=== PATIENT | female | born 1935 | race Caucasian/White ===

== ENCOUNTER → 2016-12-15 | Outpatient (REF) ==
[~2016-12-15] MED LIST: ALDACTONE 25MG25 M1 PO; ASPIRIN 81M81 MG/TA2 PO; BETAPACE 120MG120 MG PO; BETAPACE160 MG PO; CALCIUM 600 PLU1 TAB PO; CALCIUM CARBON500 M1 PO; CARDIZEM 30MG T30 MG PO; CENTRUM SILVER1 TA1 PO; D3-5050000 IU PO; DEEP SEA 45 ML45 ML NS; DIGOXIN0.125 MG PO; DILTIAZEM CD240 MG PO; FERROUS SULFATE65 MG PO; FIBERCON PO; IRON; LEVOTHYROXINE0.05 M1 PO; LISINOPRIL20 MG PO; LOPRESSOR100 MG PO; MULTI-VITAMIN W1 TA1 PO; MVI PO; PERCOCET 325 MG1 TA2 PO; SYNTHROID0.1 MG/TAB PO; TIMOLOL MALEATE5 M1 OP; TOPROL XL100 MG PO; TOPROL XL25 MG PO; TYLENOL 500MG500 MG PO; ULTRAM 50MG TAB50 MG PO; VITAMIN B12 PO; VITAMIN D PO; XALATAN EYE DROPS OD; ZOLOFT 50MG50 MG PO; ZOLOFT50 MG PO
[2016-12-15 12:26] LABS: THYROID STIMULATING HORMONE 3.93 uIU/mL (0.465-4.680)
== END ==
LOC: ZLAB.WCH 11:28
PROVIDERS: Internal Medicine
DX: Z01.89 Encounter for other specified special examinations (principal)

== ENCOUNTER 2017-05-03 11:40 | Emergency (ER) | payer MEDICARE, OTHER ==
[~2017-05-03] VITALS: Ht 167.6 cm; Wt 72.7 kg
[~2017-05-03 11:40] MED LIST changes: -ASPIRIN 81M81 MG/TA2 PO; -CALCIUM 600 PLU1 TAB PO; -DEEP SEA 45 ML45 ML NS; -MULTI-VITAMIN W1 TA1 PO; -PERCOCET 325 MG1 TA2 PO; -ULTRAM 50MG TAB50 MG PO
[2017-05-03 11:41] VITALS: TEMP 97.9
[2017-05-03 12:42] VITALS: BP 118/75
[2017-05-03] MEDS ORDERED: ULTRAM 50MG TAB50 MG PO (13:26)
[2017-05-03] MEDS ORDERED: PERCOCET 325 MG1 TA2 PO (13:26)
[2017-05-03 15:50] VITALS: PULSE 72
== END 2017-05-03 15:58 | disposition home or self-care (01) ==
LOC: COL.ER 11:40
DX: S72.125A Nondisplaced fracture of lesser trochanter of left femur, initial encounter for closed fracture (principal); S72.115A Nondisplaced fracture of greater trochanter of left femur, initial encounter for closed fracture; W01.10XA Fall on same level from slipping, tripping and stumbling with subsequent striking against unspecified object, initial encounter; Y92.009 Unspecified place in unspecified non-institutional (private) residence as the place of occurrence of the external cause; I44.7 Left bundle-branch block, unspecified; I48.0 Paroxysmal atrial fibrillation; Z96.643 Presence of artificial hip joint, bilateral
CPT/HCPCS: J1170; J1885

== ENCOUNTER 2017-05-10 11:41 | Inpatient (IN) | payer MEDICARE, OTHER ==
[~2017-05-10] VITALS: Ht 167.6 cm; Wt 73.6 kg
[~2017-05-10 11:41] MED LIST changes: +PERCOCET 325 MG1 TA2 PO; +ULTRAM 50MG TAB50 MG PO
[2017-05-10 12:32] VITALS: BP 104/52; PULSE 70; TEMP 97.8
[2017-05-10 20:00] VITALS: BP 127/49
[2017-05-11 04:29] VITALS: BP 110/61; PULSE 72; TEMP 97.9
[2017-05-11 16:41] VITALS: BP 107/50; PULSE 73; TEMP 99.5
[2017-05-12 06:07] VITALS: BP 120/53; PULSE 71; TEMP 98.5
[2017-05-12 17:24] VITALS: BP 114/68; PULSE 70; TEMP 97.6
[2017-05-13 05:03] VITALS: BP 110/52; PULSE 70; TEMP 97.8
[2017-05-13 09:22] VITALS: BP 110/60
[2017-05-13 15:53] VITALS: BP 120/55; PULSE 71; TEMP 98.6
[2017-05-14 04:48] VITALS: BP 123/53; PULSE 75; TEMP 98.3
[2017-05-14 16:45] VITALS: BP 118/52; PULSE 70; TEMP 99.2
[2017-05-14 21:30] VITALS: BP 121/57; PULSE 74
[2017-05-15 03:57] VITALS: BP 122/62; PULSE 72; TEMP 98.4
[2017-05-15 16:41] VITALS: BP 121/46; PULSE 72; TEMP 98.9
[2017-05-15 21:30] VITALS: BP 107/52; PULSE 71
[2017-05-16 03:59] VITALS: BP 122/52; PULSE 72; TEMP 98.1
[2017-05-16 17:49] VITALS: BP 112/44; PULSE 70; TEMP 98.7
[2017-05-16] MEDS ORDERED: ASPIRIN 81M81 MG/TA2 PO (20:00)
[2017-05-16] MEDS ORDERED: CALCIUM 600 PLU1 TAB PO (20:01)
[2017-05-16] MEDS ORDERED: MULTI-VITAMIN W1 TA1 PO (20:02)
[2017-05-16] MEDS ORDERED: DEEP SEA 45 ML45 ML NS (20:02)
[2017-05-16] MEDS ORDERED: ULTRAM 50MG TAB50 MG PO (20:03)
[2017-05-17 05:38] VITALS: BP 124/53; PULSE 79; TEMP 98.5
== END 2017-05-17 12:00 | disposition home health service (06) | DRG 560 ==
DX: S72.002D Fracture of unspecified part of neck of left femur, subsequent encounter for closed fracture with routine healing (principal); I42.9 Cardiomyopathy, unspecified; W01.0XXD Fall on same level from slipping, tripping and stumbling without subsequent striking against object, subsequent encounter; I10 Essential (primary) hypertension; Z95.0 Presence of cardiac pacemaker; F17.210 Nicotine dependence, cigarettes, uncomplicated; I48.0 Paroxysmal atrial fibrillation
CPT/HCPCS: 99222-AI; 99232-AI; 99239; J1650

== ENCOUNTER → 2017-06-21 | Outpatient (CLI) | payer MEDICARE, OTHER ==
[~2017-06-21] MED LIST changes: +ASPIRIN 81M81 MG/TA2 PO; +CALCIUM 600 PLU1 TAB PO; +DEEP SEA 45 ML45 ML NS; +MULTI-VITAMIN W1 TA1 PO
== END ==
LOC: MC.RAD 09:40
DX: Z12.31 Encounter for screening mammogram for malignant neoplasm of breast (principal)

== ENCOUNTER → 2017-07-03 | Outpatient (REF) | LOC: ZLAB.WCH 18:02 | DX: Z01.89 Encounter for other specified special examinations (principal) ==

== ENCOUNTER → 2017-10-15 | Outpatient (REF) | LOC: ZLAB.WCH 18:20 | DX: Z01.89 Encounter for other specified special examinations (principal) ==

== ENCOUNTER → 2018-01-01 | Outpatient (REF) ==
[2018-01-02 11:50] LABS: IRON,SERUM 106 ug/dL (35-150)
[2018-01-02 11:59] LABS: TOTAL IRON BINDING CAPACITY 366 ug/dL (265-497)
[2018-01-02 12:26] LABS: FERRITIN 23 ng/mL (11-264)
== END ==
LOC: ZLAB.WCH 15:55
PROVIDERS: Internal Medicine
DX: Z01.89 Encounter for other specified special examinations (principal)

== ENCOUNTER → 2018-01-02 | Outpatient (REF) | LOC: ZLAB.WCH 16:05 | DX: Z01.89 Encounter for other specified special examinations (principal) ==

== ENCOUNTER 2018-06-05 15:40 | Emergency (ER) | payer MEDICARE, OTHER ==
[~2018-06-05] VITALS: Ht 167.6 cm; Wt 67.7 kg
[~2018-06-05 15:40] MED LIST changes: -SYNTHROID0.1 MG/TAB PO; +SYNTHROID0.125 MG/T PO
[2018-06-05 15:43] VITALS: TEMP 98.3
[2018-06-05 16:22] LABS: BASO % 0.1 % (0.0-2.0); GRAN # 7.8 (1.4-6.5); GRAN % 88.1 % (42.2-75.2); LYMPH # 0.5 (1.2-3.4); MEAN CELL VOLUME 106 fl (80.0-100.0); MEAN CORPUSCULAR HGB CONC 31 g/dl (33.0-37.0); MEAN PLATELET VOLUME 10.1 fl (7.4-10.4); MONO # 0.5 (0.1-0.6); MONO % 5.2 % (1.7-9.3); PLATELET COUNT 131 K/mm3 (130-400); RED BLOOD COUNT 2.86 M/mm3 (4.10-5.30); REDCELL DISTRIBUTION WIDTH-CV 14.6 % (11.5-14.5)
[2018-06-05 16:31] LABS: HEMATOCRIT 30.3 % (37.0-47.0); HEMOGLOBIN 9.5 g/dl (12.5-16.0); MEAN CORPUSCULAR HEMOGLOBIN 33 pg (27.0-31.0)
[2018-06-05 16:38] LABS: ALBUMIN 3.3 gm/dL (3.5-5.0); BILIRUBIN,TOTAL 0.4 mg/dL (0.0-1.0); C-REACTIVE PROTEIN 2.5 mg/dL (0.0-0.9); CALCIUM 8.3 mg/dL (8.4-10.2); CREATININE, serum 1.04 mg/dL (0.52-1.25); MAGNESIUM 1.4 mg/dL (1.6-2.3); PHOSPHOROUS 3.4 mg/dL (2.5-4.5); POTASSIUM 3.9 mmol/L (3.4-5.0)
[2018-06-05 16:46] LABS: TROPONIN-I 0.033 ng/mL (0.000-0.034)
[2018-06-05 17:07] LABS: COLLECTION METHOD CLEAN CATCH
[2018-06-05 18:05] LABS: MUCOUS Present /lpf; SQUAMOUS EPITHELIAL 0-2 /hpf; URINE BACTERIA Moderate /hpf; URINE RBC 0-2 /hpf
[2018-06-05 18:06] LABS: PH 5 (5-8); URINE APPEARANCE Clear; URINE BILIRUBIN Negative (NEGATIVE); URINE COLOR Yellow; URINE GLUCOSE Negative (NEGATIVE); URINE KETONE Negative (NEGATIVE); URINE PROTEIN(semi-quant) Negative (NEGATIVE); URINE UROBILINOGEN Negative (NEGATIVE)
[2018-06-05 18:07] LABS: URINE BLOOD 1+ (NEGATIVE); URINE LEUKOCYTE ESTERASE 1+ (NEGATIVE); URINE NITRATE Positive (NEGATIVE)
[2018-06-05 20:00] VITALS: BP 106/60; PULSE 69
== END 2018-06-05 20:00 | disposition short-term general hospital (02) ==
LOC: COL.ER 15:40
PROVIDERS: Emergency Medicine
DX: R07.9 Chest pain, unspecified (principal); J18.1 Lobar pneumonia, unspecified organism; N39.0 Urinary tract infection, site not specified; E86.0 Dehydration; E03.9 Hypothyroidism, unspecified; I48.91 Unspecified atrial fibrillation; Z95.0 Presence of cardiac pacemaker
CPT/HCPCS: J0456; J0696; J2405; J3475; J7030; J7050

== ENCOUNTER 2018-12-27 03:01 | Inpatient (IN) | payer MEDICARE, OTHER ==
[~2018-12-27] VITALS: Ht 167.6 cm; Wt 71.4 kg
[2018-12-27] VITALS (14 sets, daily range): BP systolic 92–154; BP diastolic 46–104; PULSE 68–71; TEMP 97.6–99.8
[~2018-12-27 03:01] MED LIST changes: -D3-5050000 IU PO; +ERGOCALCIFER50000 IU PO; -TIMOLOL MALEATE5 M1 OP; +TIMOLOL MALEATE5 M1 OU; +ZOLOFT 100MG100 MG PO; -ZOLOFT 50MG50 MG PO
[2018-12-27 03:18] LABS: COLLECTION METHOD CLEAN CATCH
[2018-12-27 03:31] LABS: MUCOUS Present /lpf; PH 5 (5-8); SQUAMOUS EPITHELIAL 0-2 /hpf; URINE APPEARANCE Clear; URINE BACTERIA Rare /hpf; URINE BILIRUBIN Negative (NEGATIVE); URINE BLOOD 1+ (NEGATIVE); URINE COLOR Yellow; URINE GLUCOSE Negative (NEGATIVE); URINE KETONE Negative (NEGATIVE); URINE LEUKOCYTE ESTERASE Negative (NEGATIVE); URINE NITRATE Negative (NEGATIVE); URINE PROTEIN(semi-quant) Negative (NEGATIVE); URINE UROBILINOGEN Negative (NEGATIVE); URINE WBC 0-2 /hpf
[2018-12-27 03:58] LABS: BASO % 0.1 % (0.0-2.0); EOS # 0.1 (0.0-0.7); EOS % 0.8 % (0-4.0); GRAN # 7.2 (1.4-6.5); GRAN % 83.7 % (42.2-75.2); LYMPH # 0.9 (1.2-3.4); LYMPH % 10.1 % (20.0-51.0); MEAN CELL VOLUME 96 fl (80.0-100.0); MEAN CORPUSCULAR HGB CONC 28 g/dl (33.0-37.0); MEAN PLATELET VOLUME 10.2 fl (7.4-10.4); MONO # 0.4 (0.1-0.6); MONO % 4.6 % (1.7-9.3); PLATELET COUNT 154 K/mm3 (130-400); RED BLOOD COUNT 2.56 M/mm3 (4.10-5.30); REDCELL DISTRIBUTION WIDTH-CV 16.5 % (11.5-14.5)
[2018-12-27 04:00] LABS: HEMATOCRIT 24.5 % (37.0-47.0); HEMOGLOBIN 6.8 g/dl (12.5-16.0); MEAN CORPUSCULAR HEMOGLOBIN 27 pg (27.0-31.0)
[2018-12-27 04:09] LABS: ALANINE AMINOTRANSFERASE 22 U/L (9-52); ALBUMIN 3.4 gm/dL (3.5-5.0); ALKALINE PHOSPHATASE 75 U/L (50-136); ANION GAP 8 mmol/L (7-16); AST,SGOT 32 U/L (15-37); BILIRUBIN,TOTAL 0.2 mg/dL (0.0-1.0); BLOOD UREA NITROGEN 46 mg/dL (7-17); CALCIUM 8.5 mg/dL (8.4-10.2); CARBON DIOXIDE 17 mmol/L (22-30); CHLORIDE 115 mmol/L (98-107); GLUCOSE 100 mg/dL (74-106); POTASSIUM 5.1 mmol/L (3.4-5.0); SODIUM 140 mmol/L (137-145); TOTAL PROTEIN 5.9 gm/dL (6.4-8.2)
[2018-12-27 04:20] LABS: TROPONIN-I < 0.012 ng/mL (0.000-0.035)
[2018-12-27] MEDS ORDERED: MOBIC15 MG PO (07:35)
[2018-12-27 07:51] LABS: PROTHROMBIN TIME 11.4 SECONDS (9.7-12.8)
--- NOTE | 2018-12-27 08:30 | NUR ---
PATIENT ARRIVED TO ROOM 348 VIA CART BY ED. PATIENT ORIENTED AND SETTELED INTO ROOM. FAMILY PRESENT AT THE BEDSIDE. SEE ASSESSMENT B FOR HEAD-TO-TOE ASSESSMENT.
--- NOTE | 2018-12-27 09:50 | NUR ---
Initial visit; Patient thanked Hospital Insurance Clerk for looking in on her, offering prayer and keeping her in Hospital Insurance Clerk's prayers.
--- NOTE | 2018-12-27 10:03 | NUR ---
FIRST UNIT OF PRBC STARTED AND INFUSING TO LEFT AC IV AT 60 MLS/HR. THIS NURSE WAS PRESENT AT THE BEDSIDE FOR THE FIRST 15 MINUTES. PATIENT TOLERATING WELL WITHOUT ANY ADVERSE REACTIONS. TRANSFUSION RATE INCREASED TO 125 MLS/HR AFTER THE FIRST 15 MINUTES. PATIENT DENIES ANY NEEDS AT THIS TIME.
--- NOTE | 2018-12-27 10:29 | NUR ---
KESHAV met with patient and her two daughters to discuss discharge planning. Patient currently lives at home alone and uses a walker or cane to ambulate. Patients PCP is dr bah and [facility]. SW discussed patients need for either snf vs home with a daughter and home health. Patients signed a choice form for [facility] vs [facility] and has used [facility] in the past. If she is able to go home with her daughter she would like to use [facility]. KESHAV will fax referrals and continue to follow.
--- NOTE | 2018-12-27 10:40 | NUR ---
18 sinhala trevizo catheter inserted by student using sterile technique
--- NOTE | 2018-12-27 11:26 | NUR ---
[facility] able to accept patient. If patient is able to return home with daughter [facility] can accept as well, will continue to follow. If going to SNF would like updated where so they can follow there. [facility] pending screen.
--- NOTE | 2018-12-27 12:50 | NUR ---
FIRST UNIT OF PRBC COMPLETE. PATIENT TOLERATED WELL. SLIGHT FLUSHING TO CHEEKS NOTED. PATIENT OTHERWISE DENIES ANY REACTION TO THE TRANSFUSION. WILL CONTINUE TO MONITOR. PATIENT RESTING IN BED WITH FAMILY AT THE BEDSIDE. PATIENT DENIES ANY NEEDS AT THIS TIME.
--- NOTE | 2018-12-27 14:48 | NUR ---
[facility] would like to follow pending weight bearing status. SW to fax updates over weekend.
--- NOTE | 2018-12-27 15:38 | NUR ---
SECOND UNIT OF PRBC STARTED AND INFUSING TO LEFT AC IV AT 60 MLS/HR. THIS NURSE PRESENT AT THE BEDSIDE FOR THE FIRST 15 MINUTES. PATIENT TOLERATING TRANSFUSION. FACIAL FLUSHING NOTED, BUT UNCHANGED. PATIENT DENIES ANY OTHER REACTIONS. TRASFUSION RATE INCREASED TO 150 MLS/HR. WILL CONTINUE TO MONITOR.
--- NOTE | 2018-12-27 17:47 | NUR ---
SECOND UNIT OF PRBC COMPLETE. PATIENT TOLERATED WELL. FACIAL FLUSHING UNCHANGED. PATIENT DENIES ANY OTHER ADVERSE REACTIONS. DAUGHTER PRESENT AT THE BEDSIDE. DINNER TRAY AT BEDSIDE. PATIENT DENIES ANY NEEDS AT THIS TIME.
--- NOTE | 2018-12-27 18:09 | NUR ---
Client resting comfortably in bed. Daughter at bedside. Call light within reach. NITISH hose and SCD's in place. Negative Renee's sign. Denies complaints or needs at this time. Report given to TONY Pearson.
[2018-12-27 18:56] LABS: HEMATOCRIT 27.2 % (37.0-47.0); HEMOGLOBIN 8.2 g/dl (12.5-16.0)
--- NOTE | 2018-12-27 19:04 | NUR ---
Pt resting. Family at bedside. Pt denies pain. Assessment WNL. Lungs clear. No distress noted. BS+. No edema. Ecchymosis to L hip. Moctezuma catheter to dependent drainage- clear, yellow urine. Will continue to monitor.
--- NOTE | 2018-12-27 19:25 | NUR ---
REPORT GIVEN TO TONY LEOANRD.
--- NOTE | 2018-12-27 20:40 | NUR ---
A Jimmy SELLERS contacted. Pt c/o leg restlessness that is awakening her. ORders recevied for [facility].
--- NOTE | 2018-12-27 23:40 | NUR ---
Pt sleeping. Easily arousable. Denies pain. States that her legs are no longer bothering her.
[2018-12-28 00:08] VITALS: BP 150/53; PULSE 70; TEMP 99.8
[2018-12-28 03:40] VITALS: BP 148/65; PULSE 70; TEMP 98.5
[2018-12-28 06:12] LABS: BASO % 0.2 % (0.0-2.0); EOS # 0.1 (0.0-0.7); EOS % 1.6 % (0-4.0); GRAN % 71.3 % (42.2-75.2); LYMPH % 18.3 % (20.0-51.0); MEAN CELL VOLUME 92 fl (80.0-100.0); MEAN CORPUSCULAR HGB CONC 30 g/dl (33.0-37.0); MEAN PLATELET VOLUME 10.4 fl (7.4-10.4); MONO # 0.5 (0.1-0.6); MONO % 8.4 % (1.7-9.3); PLATELET COUNT 127 K/mm3 (130-400); RED BLOOD COUNT 2.94 M/mm3 (4.10-5.30); REDCELL DISTRIBUTION WIDTH-CV 15.7 % (11.5-14.5)
[2018-12-28 06:14] LABS: HEMATOCRIT 26.9 % (37.0-47.0); HEMOGLOBIN 8.1 g/dl (12.5-16.0); MEAN CORPUSCULAR HEMOGLOBIN 28 pg (27.0-31.0)
[2018-12-28 06:15] LABS: CALCIUM 8.2 mg/dL (8.4-10.2); CREATININE, serum 1.2 mg/dL (0.52-1.25); POTASSIUM 4.2 mmol/L (3.4-5.0)
--- NOTE | 2018-12-28 07:00 | NUR ---
Report given to Funmi JIMENEZ and Lydia JIMENEZ. Pt slept throughout the night without distress. No needs noted this AM.
--- NOTE | 2018-12-28 08:50 | NUR ---
Patient sitting in bed with family at bedside. IVF running at 60ml/hr in left wrist. Site CDI. INT to right forearm CDI. Patient stated pain at 6/10 to "her butt". Slight bruising noted to left hip. Patient administered PRN pain medication, will reassess. Patient denies further needs. Currently ordering breakfast.
[2018-12-28 09:29] VITALS: BP 144/65; PULSE 70; TEMP 96.8
--- NOTE | 2018-12-28 13:00 | NUR ---
Patient playing on tablet upon entering room. Denies pain. Family at bedside. Denies further needs.
[2018-12-28 13:18] VITALS: BP 156/65; PULSE 70; TEMP 98.2
--- NOTE | 2018-12-28 14:49 | NUR ---
PT TRYING TO NAP IS LEFT ON SHELF OUTSIDE OF ROOM
[2018-12-28 18:23] VITALS: BP 133/56; PULSE 73; TEMP 98.9
--- NOTE | 2018-12-28 18:46 | NUR ---
Report given to TONY Vieira. Patient resting in bed with family at bedside.
--- NOTE | 2018-12-28 19:08 | NUR ---
Pt resting. No distress noted. Pt states she had a good day and denies any pain at this time. Lower abdominal binder in place for comfort. Respirations even and unlabored. Lungs clear. BS+. Abdomen soft, nontender. Pt reports flatus, but no BM since admit. Moctezuma catheter to dependent drainage. Output is clear, yellow. Telemetry in place- Paced. Pedal pulses 2+ bilaterally. Heel protectors on. No edema noted. LW and RF INT- flushing well.
[2018-12-28 19:20] VITALS: BP 142/56; PULSE 78; TEMP 97.8
--- NOTE | 2018-12-28 21:52 | NUR ---
Pt sleeping. No distress noted. Daughter at bedside. Will continue to monitor.
--- NOTE | 2018-12-28 22:15 | NUR ---
Pt reporting restless leg and leg cramps. PRN Benadryl given per order. Will continue to monitor.
--- NOTE | 2018-12-28 23:30 | NUR ---
Pt c/o pain 6/10 in back and asks for help to "get off" her back. Pt repositioned. Pt reports some relief. PRN pain medication administered.
--- NOTE | 2018-12-28 23:40 | NUR ---
Pts Spo2 is 82% on room air. No distress noted. O2 @ 2L via NC applied to maintain SpO2>92%. Will continue to monitor.
[2018-12-29] VITALS (9 sets, daily range): BP systolic 114–156; BP diastolic 52–70; PULSE 64–74; TEMP 97.7–98.9
--- NOTE | 2018-12-29 00:30 | NUR ---
Pt sleeping. No distress noted. Family at bedside.
--- NOTE | 2018-12-29 03:55 | NUR ---
Pt resting. No distress noted. Pt reports relief of back pain with PRN medication and repositioning. Pt reports that "it feels great" to sleep off her back. O2 saturation maintained >92% on O2 @ 1L via NC.
--- NOTE | 2018-12-29 05:21 | NUR ---
Pt complaining of back pain 04/16. Pt repositioned and PRN pain medication administered. Pt reports some relief upon repositioning. Pt reports she has not slept much tonight and would like to rest and not be woke up to get her catheter discontinued and until day shift arrives. Pt also is worried about getting it taken out due to difficulty moving around in bed.
[2018-12-29 06:53] LABS: BASO % 0.1 % (0.0-2.0); EOS # 0.1 (0.0-0.7); EOS % 1.5 % (0-4.0); GRAN # 5.1 (1.4-6.5); LYMPH # 1.1 (1.2-3.4); LYMPH % 15.6 % (20.0-51.0); MEAN CELL VOLUME 92 fl (80.0-100.0); MEAN CORPUSCULAR HGB CONC 30 g/dl (33.0-37.0); MEAN PLATELET VOLUME 10.5 fl (7.4-10.4); MONO # 0.5 (0.1-0.6); MONO % 7.5 % (1.7-9.3); PLATELET COUNT 121 K/mm3 (130-400); RED BLOOD COUNT 2.81 M/mm3 (4.10-5.30); REDCELL DISTRIBUTION WIDTH-CV 15.8 % (11.5-14.5)
[2018-12-29 07:06] LABS: CALCIUM 8.2 mg/dL (8.4-10.2); CREATININE, serum 1.06 mg/dL (0.52-1.25); POTASSIUM 3.9 mmol/L (3.4-5.0)
[2018-12-29 07:08] LABS: HEMATOCRIT 25.7 % (37.0-47.0); HEMOGLOBIN 7.6 g/dl (12.5-16.0); MEAN CORPUSCULAR HEMOGLOBIN 27 pg (27.0-31.0)
--- NOTE | 2018-12-29 07:23 | NUR ---
Report received from TONY Brooks. Patient resting in bed with eyes closed.
--- NOTE | 2018-12-29 07:50 | NUR ---
Patient resting with eyes closed when I entered the room. Denies pain. Assessment complete. INTs flushed with 5ml NS per order. Catheter draining clear yellow urine. Catheter pulled at this time. Patient apprehensive about pain when getting up to move to go to the restroom. Attempted to reassure patient. Patient calling for breakfast when this nurse left the room.
--- NOTE | 2018-12-29 18:50 | NUR ---
Report given to TONY Vieira. Patient resting in recliner. Just finished evening meal. Denies needs
--- NOTE | 2018-12-30 03:14 | NUR ---
Patient tired of being in bed, transfers to BSC then to recliner at bedside. Takes [place] 5/325 1 tab now for pain 4/10 to buttock.
[2018-12-30 04:00] VITALS: BP 103/47; PULSE 70; TEMP 98.3
--- NOTE | 2018-12-30 06:58 | NUR ---
REPORT FROM ANAHI JIMENEZ.
[2018-12-30 07:33] VITALS: BP 127/56; PULSE 70; TEMP 98.2
[2018-12-30 08:04] LABS: EOS # 0.1 (0.0-0.7); EOS % 1.5 % (0-4.0); GRAN # 4.1 (1.4-6.5); GRAN % 74.7 % (42.2-75.2); LYMPH # 0.9 (1.2-3.4); MEAN CELL VOLUME 93 fl (80.0-100.0); MEAN CORPUSCULAR HGB CONC 30 g/dl (33.0-37.0); MEAN PLATELET VOLUME 10.8 fl (7.4-10.4); MONO # 0.4 (0.1-0.6); MONO % 7.4 % (1.7-9.3); PLATELET COUNT 125 K/mm3 (130-400); RED BLOOD COUNT 2.76 M/mm3 (4.10-5.30); REDCELL DISTRIBUTION WIDTH-CV 15.9 % (11.5-14.5)
[2018-12-30 08:09] LABS: HEMATOCRIT 25.6 % (37.0-47.0); HEMOGLOBIN 7.7 g/dl (12.5-16.0); MEAN CORPUSCULAR HEMOGLOBIN 28 pg (27.0-31.0)
[2018-12-30 08:20] LABS: CALCIUM 8.2 mg/dL (8.4-10.2); CREATININE, serum 1.13 mg/dL (0.52-1.25); POTASSIUM 3.9 mmol/L (3.4-5.0)
[2018-12-30] MEDS ORDERED: FERROUS SU325 MG/TAB PO (09:04)
[2018-12-30] MEDS ORDERED: SENOKOT S 50 MG1 TAB PO (09:05)
[2018-12-30] MEDS ORDERED: NORCO 325 MG-51 TAB PO (09:06)
--- NOTE | 2018-12-30 09:12 | NUR ---
KESHAV contacted and updated Stormy at [facility] of the patient's weight bearing status. SW faxed her updates. SW to continue to follow.
--- NOTE | 2018-12-30 10:47 | NUR ---
Stormy, at [facility], reports that they can accept the patient for a skilled stay. KESHAV informed the patient. The patient reports that she would like to pursue with [facility]. KESHAV then presented and explained the IM form to the patient. The patient verbalized understanding, signed, and she was provided a copy. KESHAV also updated [facility] at [facility]. KESHAV to update [facility] and continue to follow.
[2018-12-30 11:29] VITALS: BP 125/87; PULSE 70; TEMP 98
--- NOTE | 2018-12-30 13:31 | NUR ---
Patient to dc after CT today. Nurse asked about 3pm transport. SW scheduled a 3pm transport for patient via transport van to [facility] for retirement. SW called patients daughter Genesis and informed her of patients dc and time. She is agreeable. SW discharging to [facility] for retirement.
--- NOTE | 2018-12-30 15:21 | NUR ---
SW presented and explained the IM form to the patient. The patient verbalized understanding, signed, and she was provided a copy. No additional needs at this time.
--- NOTE | 2018-12-30 15:22 | NUR ---
REPORT TO TEODORA JIMENEZ AT [facility], PT HAS BEEN TO CT AND RETURNED, KATE POWER APRN REVIEWED CASE AND DISCHARGED AFTER SPEAKING WITH DR. RODRIGUEZ.
--- NOTE | 2018-12-30 15:37 | NUR ---
PT LEFT WITH [facility] AT THIS TIME.
== END 2018-12-30 15:38 | DRG 536 ==
LOC: COL.ER 03:01 → SURG 05:12
PROVIDERS: Emergency Medicine; Internal Medicine; Nurse Practitioner; Nurse Practitioner Family; ADMIT Family Medicine
DX: S32.810A Multiple fractures of pelvis with stable disruption of pelvic ring, initial encounter for closed fracture (principal); N17.9 Acute kidney failure, unspecified; I42.9 Cardiomyopathy, unspecified; Z66 Do not resuscitate; W18.30XA Fall on same level, unspecified, initial encounter; E86.0 Dehydration; D51.9 Vitamin B12 deficiency anemia, unspecified; I48.91 Unspecified atrial fibrillation; Z95.0 Presence of cardiac pacemaker; E03.9 Hypothyroidism, unspecified; Z98.84 Bariatric surgery status; Z87.891 Personal history of nicotine dependence; Z96.642 Presence of left artificial hip joint
CPT/HCPCS: 99223-AI; 99232-AI; 99239; A9284; J1644; J3010; J7030; P9016; Q9967

== ENCOUNTER → 2019-02-07 | Outpatient (REF) ==
[~2019-02-07] MED LIST changes: +FERROUS SU325 MG/TAB PO; +MOBIC15 MG PO; +NORCO 325 MG-51 TAB PO; +SENOKOT S 50 MG1 TAB PO
== END ==
LOC: ZLAB.WCH 14:20
DX: Z01.89 Encounter for other specified special examinations (principal)

== ENCOUNTER 2019-06-05 10:00 | Outpatient (RCR) | payer MEDICARE, OTHER | END 2019-06-09 | disposition still patient (30) | LOC: WSC | DX: S32.512A Fracture of superior rim of left pubis, initial encounter for closed fracture (principal); S32.511A Fracture of superior rim of right pubis, initial encounter for closed fracture; W19.XXXA Unspecified fall, initial encounter; Z96.643 Presence of artificial hip joint, bilateral ==

== ENCOUNTER → 2020-04-08 | Outpatient (CLI) | payer MEDICARE, OTHER | LOC: ZCOL.LAB 19:01 | DX: U07.1 COVID-19 (principal) ==

== ENCOUNTER 2020-07-06 07:05 | Day surgery (SDC) | payer MEDICARE, OTHER ==
[~2020-07-06] VITALS: Ht 167.6 cm; Wt 65.8 kg
[2020-07-06] VITALS (8 sets, daily range): BP systolic 114–155; BP diastolic 65–84; PULSE 60–65; TEMP 97.9
[2020-07-06 08:22] LABS: ALBUMIN 3.6 gm/dL (3.5-5.0); BILIRUBIN,TOTAL 0.4 mg/dL (0.0-1.0); CALCIUM 8.3 mg/dL (8.4-10.2); CREATININE, serum 1.65 (0.52-1.25); POTASSIUM 3.5 mmol/L (3.4-5.0); TOTAL PROTEIN 6.2 gm/dL (6.4-8.2)
[2020-07-06 08:24] LABS: MEAN CELL VOLUME 112 fl (80.0-100.0); MEAN CORPUSCULAR HGB CONC 30 g/dl (33.0-37.0); PLATELET COUNT 133 K/mm3 (130-400); RED BLOOD COUNT 2.81 M/mm3 (4.10-5.30)
[2020-07-06 08:26] LABS: HEMATOCRIT 31.5 % (37.0-47.0); HEMOGLOBIN 9.3 g/dl (12.5-16.0); MEAN CORPUSCULAR HEMOGLOBIN 33 pg (27.0-31.0)
[2020-07-06 08:35] LABS: PROTHROMBIN TIME 11.3 SECONDS (9.7-12.8)
[2020-07-06] MEDS ORDERED: FERROUS SU325 MG/TAB PO (08:35)
[2020-07-06] MEDS ORDERED: CYANOCOBAL1000 MCG/M IM (08:37)
[2020-07-06] MEDS ORDERED: K-DUR 10 MEQ T10 MEQ PO (08:38)
[2020-07-06] MEDS ORDERED: LASIX 20MG TABL20 MG PO (08:39)
[2020-07-06] MEDS ORDERED: OMNICEF 300MG300 MG PO (08:40)
--- NOTE | 2020-07-06 09:23 | NUR ---
SEE MEREDANIELA FOR ALL MEDICATION ADMINISTRATION TIMES, INTRA AND POST SEDATION ASSESSMENTS
--- NOTE | 2020-07-06 12:01 | NUR ---
Pt has been back from laborer heading since 1040, she has remained awake, alert, conversational with daughter in room. ice pack has been in place to incision site. pt eating a snack now, drinking without any problem. I reviewed dc and fu instructions with pt and daughter, both of whom verbalized understanding. Plan for continued bedrest till 1240. pt aware.
--- NOTE | 2020-07-06 13:00 | NUR ---
1240- bedrest complete, pt up and ambulatory with steady gait in room with walker. incision site dressing is clean and dry. pt denies any pain. iv dc'd cath intact dressing applied. dc/fu instructions reviewed again, no questions. to exit via wheelchair at approx 1300.
[2020-07-06 14:31] LABS: BASO % 0.2 % (0.0-2.0); EOS # 0.1 (0.0-0.7); EOS % 1.3 % (0-4.0); GRAN # 3.3 (1.4-6.5); GRAN % 70.8 % (42.2-75.2); LYMPH % 21.7 % (20.0-51.0); MEAN CELL VOLUME 113 fl (80.0-100.0); MEAN CORPUSCULAR HGB CONC 29 g/dl (33.0-37.0); MEAN PLATELET VOLUME 10.7 fl (7.4-10.4); MONO # 0.3 (0.1-0.6); MONO % 5.8 % (1.7-9.3); PLATELET COUNT 134 K/mm3 (130-400); REDCELL DISTRIBUTION WIDTH-CV 17.1 % (11.5-14.5)
[2020-07-06 14:37] LABS: HEMATOCRIT 31.6 % (37.0-47.0); HEMOGLOBIN 9.3 g/dl (12.5-16.0); MEAN CORPUSCULAR HEMOGLOBIN 33 pg (27.0-31.0)
== END 2020-07-06 13:20 | disposition home or self-care (01) ==
LOC: COL.CAR 07:05
PROVIDERS: Internal Medicine; Internal Medicine Cardiovascular Disease
DX: Z45.010 Encounter for checking and testing of cardiac pacemaker pulse generator [battery] (principal); I48.0 Paroxysmal atrial fibrillation; I11.9 Hypertensive heart disease without heart failure; I44.7 Left bundle-branch block, unspecified; N39.0 Urinary tract infection, site not specified; E11.9 Type 2 diabetes mellitus without complications; D64.9 Anemia, unspecified; E03.9 Hypothyroidism, unspecified; Z87.891 Personal history of nicotine dependence; Z91.048 Other nonmedicinal substance allergy status; Z79.84 Long term (current) use of oral hypoglycemic drugs; Z79.01 Long term (current) use of anticoagulants
CPT/HCPCS: C1785; J0690; J2250; J3010; J7030

== ENCOUNTER 2021-05-25 14:38 | Emergency (ER) | payer MEDICARE, OTHER ==
[~2021-05-25] VITALS: Ht 167.6 cm; Wt 62.3 kg
[~2021-05-25 14:38] MED LIST changes: +CYANOCOBAL1000 MCG/M IM; +K-DUR 10 MEQ T10 MEQ PO; +LASIX 20MG TABL20 MG PO; +OMNICEF 300MG300 MG PO
[2021-05-25 14:56] VITALS: TEMP 97.6
[2021-05-25 15:34] LABS: BASO % 0.5 % (0.0-2.0); EOS # 0.1 (0.0-0.7); EOS % 0.8 % (0-4.0); GRAN # 4.1 (1.4-6.5); GRAN % 68.5 % (42.2-75.2); LYMPH # 1.3 (1.2-3.4); LYMPH % 22.2 % (20.0-51.0); MEAN CELL VOLUME 110 fl (80.0-100.0); MEAN CORPUSCULAR HGB CONC 29 g/dl (33.0-37.0); MEAN PLATELET VOLUME 9.9 fl (7.4-10.4); MONO # 0.5 (0.1-0.6); MONO % 7.8 % (1.7-9.3); PLATELET COUNT 171 K/mm3 (130-400); RED BLOOD COUNT 2.59 M/mm3 (4.10-5.30); REDCELL DISTRIBUTION WIDTH-CV 15.8 % (11.5-14.5)
[2021-05-25 15:38] LABS: HEMATOCRIT 28.4 % (37.0-47.0); HEMOGLOBIN 8.2 g/dl (12.5-16.0); MEAN CORPUSCULAR HEMOGLOBIN 32 pg (27.0-31.0)
[2021-05-25 15:54] LABS: ALANINE AMINOTRANSFERASE 8 U/L (4-34); ALBUMIN 3.5 gm/dL (3.5-5.0); ALKALINE PHOSPHATASE 81 U/L (50-136); ANION GAP 8 mmol/L (7-16); AST,SGOT 26 U/L (15-37); BILIRUBIN,TOTAL 0.1 mg/dL (0.0-1.0); BLOOD UREA NITROGEN 32 mg/dL (7-17); CALCIUM 8.1 mg/dL (8.4-10.2); CHLORIDE 117 mmol/L (98-107); CREATININE, serum 1.33 (0.52-1.25); GLUCOSE 76 mg/dL (74-106); POTASSIUM 3.7 mmol/L (3.4-5.0); SODIUM 139 mmol/L (137-145); TOTAL PROTEIN 6.5 gm/dL (6.4-8.2)
[2021-05-25 16:00] LABS: CARBON DIOXIDE 14 mmol/L (22-30)
[2021-05-25 16:19] LABS: TROPONIN-I < 0.012 ng/mL (0.000-0.035)
[2021-05-25 16:55] LABS: COLLECTION METHOD CLEAN CATCH
[2021-05-25 17:14] LABS: MUCOUS Present /lpf; PH 5 (5-8); URINE APPEARANCE Hazy; URINE BACTERIA Rare /hpf; URINE BILIRUBIN Negative (NEGATIVE); URINE BLOOD Negative (NEGATIVE); URINE COLOR Yellow; URINE GLUCOSE Negative (NEGATIVE); URINE KETONE Negative (NEGATIVE); URINE LEUKOCYTE ESTERASE 1+ (NEGATIVE); URINE NITRATE Positive (NEGATIVE); URINE PROTEIN(semi-quant) 1+ (NEGATIVE); URINE RBC 0-2 /hpf; URINE UROBILINOGEN Negative (NEGATIVE)
[2021-05-25] MEDS ORDERED: CEPHALEXIN500 M1 PO (17:55)
[2021-05-25 18:12] VITALS: BP 130/61; PULSE 62
[2021-05-29] MEDS ORDERED: MACROBID 1100 MG/CAP PO (07:26)
== END 2021-05-25 18:12 | disposition home or self-care (01) ==
LOC: COL.ER 14:38
PROVIDERS: Physician Assistant
DX: I50.9 Heart failure, unspecified (principal); D63.1 Anemia in chronic kidney disease; N39.0 Urinary tract infection, site not specified; N18.30 Chronic kidney disease, stage 3 unspecified; R79.0 Abnormal level of blood mineral; E03.9 Hypothyroidism, unspecified; Z95.0 Presence of cardiac pacemaker; Z98.61 Coronary angioplasty status; Z20.822 Contact with and (suspected) exposure to COVID-19; Z79.890 Hormone replacement therapy
CPT/HCPCS: J1940

== ENCOUNTER 2021-10-19 11:26 | Inpatient (IN) | payer MEDICARE, OTHER ==
[~2021-10-19] VITALS: Ht 167.6 cm; Wt 63.6 kg
[~2021-10-19 11:26] MED LIST changes: +CEPHALEXIN500 M1 PO; +MACROBID 1100 MG/CAP PO
[2021-10-19 12:29] LABS: BASO % 0.2 % (0.0-2.0); GRAN # 3.6 K/mm3 (1.4-6.5); GRAN % 81.4 % (42.2-75.2); LYMPH # 0.5 K/mm3 (1.2-3.4); LYMPH % 10.8 % (20.0-51.0); MEAN CELL VOLUME 88 fl (80.0-100.0); MEAN CORPUSCULAR HGB CONC 30 g/dl (33.0-37.0); MEAN PLATELET VOLUME 9.8 fl (7.4-10.4); MONO # 0.3 K/mm3 (0.1-0.6); MONO % 7.4 % (1.7-9.3); PLATELET COUNT 137 K/mm3 (130-400); RED BLOOD COUNT 2.97 M/mm3 (4.10-5.30); REDCELL DISTRIBUTION WIDTH-CV 16.7 % (11.5-14.5)
[2021-10-19 12:32] LABS: HEMATOCRIT 26.2 % (37.0-47.0); HEMOGLOBIN 7.8 g/dl (12.5-16.0); MEAN CORPUSCULAR HEMOGLOBIN 26 pg (27-31)
[2021-10-19 12:57] LABS: ALBUMIN 3.5 gm/dL (3.4-4.8); ALKALINE PHOSPHATASE 84 U/L (40-150); ANION GAP 11 mmol/L (7-16); AST,SGOT 21 U/L (5-34); BILIRUBIN,TOTAL 0.5 mg/dL (0.2-1.2); BLOOD UREA NITROGEN 20 mg/dL (10-20); CALCIUM 7.9 mg/dL (8.4-10.2); CARBON DIOXIDE 19 mmol/L (23-31); CHLORIDE 107 mmol/L (98-107); CREATININE, serum 1.23 mg/dL (0.57-1.11); GLUCOSE 84 mg/dL (70-99); POTASSIUM 4.1 mmol/L (3.5-4.5); SODIUM 137 mmol/L (136-145); TOTAL PROTEIN 6.5 gm/dL (6.2-8.1)
[2021-10-19 13:00] LABS: ALANINE AMINOTRANSFERASE < 6 U/L (0-55)
[2021-10-19 13:05] LABS: TROPONIN-I 0.315 ng/mL (0.00-0.033)
[2021-10-19] MEDS ORDERED: SODIUM BICARBO650 MG PO (17:54)
[2021-10-19 20:16] VITALS: BP 114/49; PULSE 59; TEMP 97.4
--- NOTE | 2021-10-19 22:41 | NUR ---
Patient assessed around 2100. Alert and oriented, and able to make needs known. Denies having pain and discomfort at this time. Peripheral INT to left upper arm. Denies SOB and dyspnea at rest, but does with exertion. LS CTA in upper lobes, diminished in lower. Productive cough noted. On oxygen at 1 L/min via NC. HRR. BSAx4. 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 No edema. Voices no questions, needs, or concerns at this time. In bed with call light within reach. Bed alarm on.
[2021-10-20] VITALS (7 sets, daily range): BP systolic 107–152; BP diastolic 48–67; PULSE 60–65; TEMP 97.8–100.9
--- NOTE | 2021-10-20 06:02 | NUR ---
Patient has been resting in bed with call light within reach. Continues on oxygen around .5 L/min via NC. Continues to have productive cough. Voices no questions, needs, or concerns at this time. In bed with call light within reach. Bed alarm on.
[2021-10-20 06:08] LABS: MEAN CELL VOLUME 91 fl (80.0-100.0); MEAN CORPUSCULAR HGB CONC 29 g/dl (33.0-37.0); MEAN PLATELET VOLUME 10.5 fl (7.4-10.4); PLATELET COUNT 131 K/mm3 (130-400); RED BLOOD COUNT 2.59 M/mm3 (4.10-5.30); REDCELL DISTRIBUTION WIDTH-CV 16.7 % (11.5-14.5)
[2021-10-20 06:13] LABS: HEMATOCRIT 23.6 % (37.0-47.0); HEMOGLOBIN 6.9 g/dl (12.5-16.0); MEAN CORPUSCULAR HEMOGLOBIN 27 pg (27-31)
[2021-10-20 06:30] LABS: CALCIUM 7.8 mg/dL (8.4-10.2); CREATININE, serum 1.26 mg/dL (0.57-1.11); POTASSIUM 3.9 mmol/L (3.5-4.5)
--- NOTE | 2021-10-20 06:42 | NUR ---
Hemoglobin 6.[address] this [address] to Dr[address] Doss. No new orders at this time.
--- NOTE | 2021-10-20 10:10 | NUR ---
Patient had echo this morning, worked w/ PT and OT. Currently has no complaints. Daughter is at the bedside.
--- NOTE | 2021-10-20 10:15 | NUR ---
Initial visit attempt; Patient ill with influenza. Form Setter Supervisor gave a card offering Hope and God's blessings to patient via her daughter whom Form Setter Supervisor had met earlier.
--- NOTE | 2021-10-20 11:46 | NUR ---
The patient is positive for Influenza A. KESHAV contacted the patient to discuss discharge plan. Her daughter, Caroline (ph#[phone]), answered the phone. Caroline passed the phone to the patient. The patient lives alone in [place]. She reports that she has family that lives nearby. She reports independence with ADLs and has a walker. The patient's PCP is Dr. Rubio Ortega and she receives her medications from [facility]. The patient does not have a DPOA-HC in EMR, but she states that she does have one completed and that she designated her daughter, Caroline. The patient reports that she is not and that she has 8 living children: CarolineTawana muniz (ph#[phone]), Genesis Santana (ph#[phone]), Suzette Benavides, Coral, Christine, and Coco. The patient reports that Dr. Ortega's office may have a copy and that her daughter states that she has a copy in her safety deposit box. The patient plans on returning home upon discharge. PT is recommending home. KESHAV contacted Dr. Ortega's office to inquire if they have a copy. The clinic receptionist reports that she has found the patient's DNR and Living Will and fax it to the medical unit. *Discharge plan: home*
--- NOTE | 2021-10-20 17:57 | NUR ---
Patient has done well today. Assisted to the bathroom by this RN. Requested tylenol for a headache. On RA and tolerating it well.
--- NOTE | 2021-10-20 22:39 | NUR ---
Patient assessed around 1919. Alert and oriented, and able to make needs known. Denies pain and discomfort. Peripheral INT to left upper arm. On room air. LS CTA. Continues to have occasional productive cough. Reports feeling much better, and denies SOB and dyspnea. In bed with call light within reach.
[2021-10-21 05:40] VITALS: BP 111/54; PULSE 61; TEMP 97.8
--- NOTE | 2021-10-21 06:11 | NUR ---
Positive blood cultures during the night. DESIRAE Fournier updated. New order for Zosyn. INT to left upper arm leaking. Started new IV site to right forearm. Explained to patient ABX. Voices no questions, needs, or concerns at this time. In bed with call light within reach.
[2021-10-21 06:22] LABS: MEAN CELL VOLUME 91 fl (80.0-100.0); MEAN CORPUSCULAR HGB CONC 28 g/dl (33.0-37.0); MEAN PLATELET VOLUME 10.5 fl (7.4-10.4); PLATELET COUNT 141 K/mm3 (130-400); RED BLOOD COUNT 2.99 M/mm3 (4.10-5.30)
[2021-10-21 06:27] LABS: HEMATOCRIT 27.2 % (37.0-47.0); HEMOGLOBIN 7.7 g/dl (12.5-16.0); MEAN CORPUSCULAR HEMOGLOBIN 26 pg (27-31)
[2021-10-21 06:32] LABS: CREATININE, serum 1.21 mg/dL (0.57-1.11); POTASSIUM 4.2 mmol/L (3.5-4.5)
[2021-10-21 07:18] VITALS: BP 112/53; PULSE 61; TEMP 98.2
--- NOTE | 2021-10-21 10:03 | NUR ---
OT is recommending home health. SW contacted the patient to discuss their recommendation. The patient reports that she is open to home health and believes she had services from [facility] in the past. She would like to use them again. KESHAV contacted and faxed a referral to Aleyda at [facility]. Aleyda reports that they are able to accept the patient for services. SW to continue to follow. *Discharge plan: home with home health*
--- NOTE | 2021-10-21 10:55 | NUR ---
Patient sitting in bed, eating breakfast upon entering the room. Patient is A&Ox4 and doing well. Patient fever free this AM.
[2021-10-21] MEDS ORDERED: ZYRTEC 10MG10 MG PO (11:34)
[2021-10-21 11:47] VITALS: BP 99/45; PULSE 59; TEMP 98
[2021-10-21 12:11] LABS: COLLECTION METHOD CLEAN CATCH
[2021-10-21 12:22] LABS: MUCOUS Present (NOT PRESENT); PH 5 (5-8); SQUAMOUS EPITHELIAL 0-2 /hpf (0-10); URINE APPEARANCE Clear (CLEAR/HAZY); URINE BACTERIA Rare /hpf (NONE SEEN); URINE BILIRUBIN Negative (NEGATIVE); URINE BLOOD Negative (NEGATIVE); URINE COLOR Yellow (YELLOW); URINE GLUCOSE Negative (NEGATIVE); URINE KETONE Negative (NEGATIVE); URINE LEUKOCYTE ESTERASE Negative (NEGATIVE); URINE NITRATE Negative (NEGATIVE); URINE PROTEIN(semi-quant) Negative (NEGATIVE); URINE RBC 0-2 /hpf (0-2); URINE UROBILINOGEN Negative (NEGATIVE)
[2021-10-21 16:40] VITALS: BP 131/47; PULSE 59; TEMP 98.5
--- NOTE | 2021-10-21 17:53 | NUR ---
Patient has done wll today, cought still present but afebrile. Tomorrow will be day 5 of tamiflu.
[2021-10-21 19:43] VITALS: BP 111/51; PULSE 63; TEMP 98.6
--- NOTE | 2021-10-21 21:55 | NUR ---
Patient assessed around 2009. Alert and oriented x 4, and able to make needs known. Complained of back pain and given PRN APAP around 2149. Peripheral INT to left and right forearm. Denies SOB and dypsnea. LS CTA. Moist cough. HRR. Telemetry in place. Capillary refill less than 3 seconds. Non-tenting skin turgor. BSAx4. Abdomen soft and non-tender. No edema. Voices no further questions, needs, or concerns at this time. In bed with call light within reach.
[2021-10-21 23:25] VITALS: BP 111/52; PULSE 62; TEMP 98.2
[2021-10-22 03:33] VITALS: BP 109/48; PULSE 64; TEMP 97.4
--- NOTE | 2021-10-22 05:52 | NUR ---
Continues on IV ABX for positive blood cultures per orders. No fevers tonight. In bed with call light within reach.
[2021-10-22 07:37] VITALS: BP 140/62; PULSE 60; TEMP 98
[2021-10-22 07:54] LABS: CREATININE, serum 1.47 mg/dL (0.57-1.11); POTASSIUM 3.6 mmol/L (3.5-4.5)
[2021-10-22 08:02] LABS: EOS % 0.5 % (0.0-4.0); GRAN # 1.3 K/mm3 (1.4-6.5); GRAN % 63.8 % (42.2-75.2); LYMPH # 0.6 K/mm3 (1.2-3.4); LYMPH % 30.7 % (20.0-51.0); MEAN CELL VOLUME 88 fl (80.0-100.0); MEAN CORPUSCULAR HGB CONC 30 g/dl (33.0-37.0); MEAN PLATELET VOLUME 10.8 fl (7.4-10.4); MONO # 0.1 K/mm3 (0.1-0.6); PLATELET COUNT 124 K/mm3 (130-400); RED BLOOD COUNT 2.62 M/mm3 (4.10-5.30)
[2021-10-22 08:06] LABS: HEMOGLOBIN 6.8 g/dl (12.5-16.0); MEAN CORPUSCULAR HEMOGLOBIN 26 pg (27-31)
--- NOTE | 2021-10-22 09:15 | NUR ---
Shift assessment complete. Pt resting in bed. A&Ox4. Heart RRR. Left lung clear to auscultation, right lung coarse. Pt having productive cough. Denies pain or SOA. No concerns expressed at this time. Brought pt bath wipes and shower cap per request. Continuing to monitor.
[2021-10-22 11:19] VITALS: BP 125/58; PULSE 60; TEMP 97.6
[2021-10-22 16:50] VITALS: BP 134/59; PULSE 64; TEMP 97.7
[2021-10-22 20:14] VITALS: BP 123/63; PULSE 60; TEMP 97.8
[2021-10-22 23:47] VITALS: BP 129/72; PULSE 60; TEMP 97.6
[2021-10-23] VITALS (11 sets, daily range): BP systolic 118–165; BP diastolic 54–74; PULSE 56–64; TEMP 97.5–98.4
--- NOTE | 2021-10-23 05:15 | NUR ---
PT A/O, AFEBRILE, AND VITALS STABLE. PT TACHPENIC, DIAPHORETIC, FELT SOA, O2 SAT 87-88%, CRACKLES UPON AUSCULTATION. O2 ON ADMIN FROM ED WAS 3L, TITTRATED TO 5L AND INCREASED TO 7L VIA NC. UPON REASSESSMENT PT STATED, "HE FELT LIKE HE WAS BREATHING BETTER." SKIN MOIST BUT NO BEADS OF SWEAT PRESENT, R/R UNLABORED AND NORMAL, O2 SAT >92%. 40MG PO LASIX ADMIN. HEPARIN DRIP CONTINUES. INT NON PRODUCTIVE COUGH. NO BM DURING SHIFT, CLEAR DARK YANI URINE OBSERVED. SEE MAR/EMAR/LABS FOR OTHER DETAILS.
[2021-10-23 06:27] LABS: MEAN CELL VOLUME 88 fl (80.0-100.0); MEAN CORPUSCULAR HGB CONC 30 g/dl (33.0-37.0); MEAN PLATELET VOLUME 10.2 fl (7.4-10.4); PLATELET COUNT 116 K/mm3 (130-400); RED BLOOD COUNT 2.55 M/mm3 (4.10-5.30)
[2021-10-23 06:33] LABS: CALCIUM 7.9 mg/dL (8.4-10.2); CREATININE, serum 1.41 mg/dL (0.57-1.11); POTASSIUM 3.8 mmol/L (3.5-4.5)
[2021-10-23 06:36] LABS: HEMATOCRIT 22.4 % (37.0-47.0); MEAN CORPUSCULAR HEMOGLOBIN 26 pg (27-31)
[2021-10-23 06:37] LABS: HEMOGLOBIN 6.6 g/dl (12.5-16.0)
--- NOTE | 2021-10-23 07:00 | NUR ---
CRITICAL HEMOGLOBIN OF 6.6 CALLED TO
--- NOTE | 2021-10-23 08:30 | NUR ---
Shift assessment complete. Pt taken off droplet isolation precautions this morning per guidance from Infection Control. Remains afebrile. Wet cough noted. Right upper lung lobe w/coarse sounds, all other [place] clear to auscultation. Reports mild SOA w/exertion. Denies pain or other concerns. Hgb 6.6 this morning and lab to draw type&screen for transfusion. Blood consent signed and placed on chart. Call light in reach. Continuing to monitor.
[2021-10-23] MEDS ORDERED: PRAVACHOL 20MG20 MG PO (16:28)
[2021-10-23] MEDS ORDERED: FERROUSAL325 MG PO (16:28)
[2021-10-23] MEDS ORDERED: ASPIRIN E.C. 8181 MG PO (16:29)
--- NOTE | 2021-10-23 16:40 | NUR ---
PT HGB BEING DRAWN RIGHT NOW.
[2021-10-23] MEDS ORDERED: PACERONE400 MG PO (16:43)
[2021-10-23 19:03] LABS: HEMATOCRIT 28.7 % (37.0-47.0); HEMOGLOBIN 8.6 g/dl (12.5-16.0)
--- NOTE | 2021-10-23 19:49 | NUR ---
PT HGB IS BETTER AT 8.6. CONTACTED JN GARIBAY WHO WILL PUT IN HER DISCHARGE.
--- NOTE | 2021-10-23 20:41 | NUR ---
PT DISCHARGED AT THIS TIME. WALKED OUT WITH NOE CREWS AND WITH DAUGHTER. NO FURTHER CONCERNS.
--- NOTE | 2021-10-24 15:01 | NUR ---
Aleyda, at [facility], contacted KESHAV to inquire about status of discharge. The patient discharged back home yesterday, 10/24. KESHAV notified and faxed orders and the discharge summary to Aleyda at [facility]. The patient discharged back home yesterday, 10/24, with home health services for care home/PT/OT from [facility]. No additional needs at this time.
== END 2021-10-23 23:05 | disposition home or self-care (01) | DRG 194 ==
LOC: COL.ER 11:26 → MEDICAL 13:51
PROVIDERS: Emergency Medicine; Physician Assistant; ADMIT Internal Medicine
PROC: 4B02XSZ Measurement of Cardiac Pacemaker, External Approach (ICD-10-PCS; principal; 2021-10-19)
DX: J10.1 Influenza due to other identified influenza virus with other respiratory manifestations (principal); I13.0 Hypertensive heart and chronic kidney disease with heart failure and stage 1 through stage 4 chronic kidney disease, or unspecified chronic kidney disease; K52.1 Toxic gastroenteritis and colitis; I48.91 Unspecified atrial fibrillation; E03.9 Hypothyroidism, unspecified; D64.9 Anemia, unspecified; I50.9 Heart failure, unspecified; N18.30 Chronic kidney disease, stage 3 unspecified; I44.7 Left bundle-branch block, unspecified; F32.A Depression, unspecified; Z66 Do not resuscitate; I08.0 Rheumatic disorders of both mitral and aortic valves; T36.0X5A Adverse effect of penicillins, initial encounter; Z96.643 Presence of artificial hip joint, bilateral; Z96.652 Presence of left artificial knee joint; Z95.0 Presence of cardiac pacemaker; Z87.891 Personal history of nicotine dependence; Z20.822 Contact with and (suspected) exposure to COVID-19
CPT/HCPCS: 99222-AI; 99232-AI; 99233-AI; J1644; J2405; J2543; J7030; P9016

== ENCOUNTER 2022-05-27 11:59 | Inpatient (IN) | payer MEDICARE, OTHER ==
[~2022-05-27] VITALS: Ht 157.5 cm; Wt 60.9 kg
[~2022-05-27 11:59] MED LIST changes: +ASPIRIN E.C. 8181 MG PO; +FERROUSAL325 MG PO; +PACERONE400 MG PO; +PRAVACHOL 20MG20 MG PO; +SODIUM BICARBO650 MG PO; +ZYRTEC 10MG10 MG PO
[2022-05-27 13:12] LABS: COLLECTION METHOD CLEAN CATCH
[2022-05-27 13:16] LABS: BASO % 0.2 % (0.0-2.0); EOS # 0.1 K/mm3 (0.0-0.7); GRAN # 2.7 K/mm3 (1.4-6.5); GRAN % 66.4 % (42.2-75.2); LYMPH # 0.8 K/mm3 (1.2-3.4); LYMPH % 18.8 % (20.0-51.0); MEAN CELL VOLUME 103 fl (80.0-100.0); MEAN CORPUSCULAR HGB CONC 31 g/dl (33.0-37.0); MEAN PLATELET VOLUME 9.8 fl (7.4-10.4); MONO # 0.5 K/mm3 (0.1-0.6); MONO % 11.4 % (1.7-9.3); PLATELET COUNT 145 K/mm3 (130-400); RED BLOOD COUNT 3.02 M/mm3 (4.10-5.30); REDCELL DISTRIBUTION WIDTH-CV 14.8 % (11.5-14.5)
[2022-05-27 13:18] LABS: HEMOGLOBIN 9.5 g/dl (12.5-16.0); MEAN CORPUSCULAR HEMOGLOBIN 31 pg (27-31)
[2022-05-27 13:26] LABS: MUCOUS Present (NOT PRESENT); SQUAMOUS EPITHELIAL 0-2 /hpf (0-10); URINE BACTERIA Rare /hpf (NONE SEEN); URINE RBC 0-2 /hpf (0-2)
[2022-05-27 13:27] LABS: PH 5 (5-8); URINE APPEARANCE Clear (CLEAR/HAZY); URINE BLOOD 2+ (NEGATIVE); URINE COLOR Yellow (YELLOW); URINE GLUCOSE Negative (NEGATIVE); URINE KETONE Negative (NEGATIVE); URINE NITRATE Positive (NEGATIVE); URINE PROTEIN(semi-quant) Negative (NEGATIVE); URINE UROBILINOGEN 0.2 (NEGATIVE)
[2022-05-27 13:34] LABS: ALBUMIN 2.9 gm/dL (3.4-4.8); BILIRUBIN,TOTAL 0.5 mg/dL (0.2-1.2); C-REACTIVE PROTEIN 1.01 mg/dL (0.00-0.50); CALCIUM 8.9 mg/dL (8.4-10.2); CREATININE, serum 2.31 mg/dL (0.57-1.11); TOTAL PROTEIN 6.1 gm/dL (6.2-8.1)
[2022-05-27 13:39] LABS: TROPONIN-I 0.014 ng/mL (0.00-0.033)
[2022-05-27] MEDS ORDERED: PACERONE200 MG PO (15:54)
[2022-05-27] MEDS ORDERED: XALATAN EYE DROPS OU (16:09)
[2022-05-27] MEDS ORDERED: VITAMIN D3400 I1 PO (16:09)
[2022-05-27] MEDS ORDERED: ZILRETTA32 MG (16:10)
[2022-05-27] MEDS ORDERED: FERROUSAL325 MG PO (16:22)
[2022-05-27 19:55] VITALS: BP 157/62; PULSE 59; TEMP 97.9
[2022-05-28] VITALS (7 sets, daily range): BP systolic 136–174; BP diastolic 44–63; PULSE 59–84; TEMP 97.7–98.6
--- NOTE | 2022-05-28 01:33 | NUR ---
Pt alert and oriented. Follows commands. Hard of hearing, hearing aids at bedside. Pt up to void with assitance, no loose stools yet this evening. Denies pain at this time. VS stable. On room air. Continuing with IV fluids per orders. Pt did not want to take the 2100 scheduled sodium bicarb this evening. She states she takes it BID at home and took it prior to coming into hospital and then had it again at 1700 at the hospital. Telemetry on. Tolerating PO. Denies nausea/vomiting. Shift assessment performed. Medications administered per orders and education provided. No significant skin issues noted. Bed low and locked, call mtz within reach. No new concerns at this time.
--- NOTE | 2022-05-28 04:33 | NUR ---
No adverse events overnight. Alert and oriented. Continuing with IV fluids per orders. VS stable. On room air. No loose stools overnight. Up to void overnight. Tolerating PO. Telemetry on. Fall precautions in place. Bed low and locked, call mtz within reach. No new concerns at this time.
[2022-05-28 06:08] LABS: BASO % 0.4 % (0.0-2.0); EOS # 0.1 K/mm3 (0.0-0.7); EOS % 4.1 % (0.0-4.0); GRAN # 1.5 K/mm3 (1.4-6.5); GRAN % 53.4 % (42.2-75.2); LYMPH # 0.8 K/mm3 (1.2-3.4); LYMPH % 29.2 % (20.0-51.0); MEAN CELL VOLUME 101 fl (80.0-100.0); MEAN CORPUSCULAR HGB CONC 31 g/dl (33.0-37.0); MEAN PLATELET VOLUME 9.7 fl (7.4-10.4); MONO # 0.3 K/mm3 (0.1-0.6); MONO % 12.5 % (1.7-9.3); PLATELET COUNT 120 K/mm3 (130-400); RED BLOOD COUNT 2.54 M/mm3 (4.10-5.30); REDCELL DISTRIBUTION WIDTH-CV 14.6 % (11.5-14.5)
[2022-05-28 06:15] LABS: HEMATOCRIT 25.6 % (37.0-47.0); HEMOGLOBIN 7.9 g/dl (12.5-16.0); MEAN CORPUSCULAR HEMOGLOBIN 31 pg (27-31)
[2022-05-28 06:46] LABS: CREATININE, serum 2.11 mg/dL (0.57-1.11); MAGNESIUM 1.4 mg/dL (1.6-2.6); POTASSIUM 4.9 mmol/L (3.5-4.5)
--- NOTE | 2022-05-28 09:41 | NUR ---
VSS, PT A&O X4, PT ABLE TO MAKE NEEDS KNOWN, PT REPORTS DIARRHEA THIS AM, GI PANEL NEGATIVE, PT TO SIDE OF BED FOR BREAKFAST, FALL PRECAUTIONS IN PLACE, CALL LIGHT IN REACH
--- NOTE | 2022-05-28 10:32 | NUR ---
SW met with patient to conduct intake. Patient informed SW that she lives alone in [facility]. Next of kin and DPOA/HC is Caroline Deshaun [phone]. Patient uses a walker, is independent with ADL's and does not obtain services at this time from any home health agency. PCP is Dr. Ortega and pharmacy is [facility]. Patient plans to return to her home upon DC. SW will continue to follow patient to assist with needs upon DC. DC plan: home
--- NOTE | 2022-05-28 20:20 | NUR ---
Pt lying down in bed. A&O x4. VSS. Daughter at bedside. Shift assessment completed. Pt states feeling god. Denies any needs or concerns. Telemetry on. Fluids running in Left forearm periphelal line. CDI. No redness or edema. Call light within reach.
--- NOTE | 2022-05-28 20:20 | NUR ---
This EQUINE DENTIST reported to rim fire charger operator nurse that pt has adventitious breath sounds in bases of the lungs.
--- NOTE | 2022-05-28 20:25 | NUR ---
VERIFIED ASSESSMENT FOR CRISTINA, BANKRUPTCY LAW SPECIALIST. PT'S LUNG SOUNDS ARE CRACKLES IN THE BASES. CONTACTED JN SANCHEZ WHO STOPPED IV FLUIDS AT THIS TIME.
[2022-05-29 00:52] VITALS: BP 150/55; PULSE 60; TEMP 99
[2022-05-29 04:31] VITALS: BP 141/60; PULSE 61; TEMP 98.6
--- NOTE | 2022-05-29 05:46 | NUR ---
Pt up to the bathroom. Anselmo BM. Right forearm INT in place. CDI. No other needs at the moment. Call light within reach.
--- NOTE | 2022-05-29 06:30 | NUR ---
Pt up to the bathroom. Loose BM episode. Right forearm INT. CDI. No other needs or concerns at this time. Call light within reach.
[2022-05-29 06:42] LABS: BASO % 0.8 % (0.0-2.0); EOS # 0.1 K/mm3 (0.0-0.7); EOS % 3.1 % (0.0-4.0); GRAN # 1.4 K/mm3 (1.4-6.5); LYMPH # 0.7 K/mm3 (1.2-3.4); LYMPH % 27.9 % (20.0-51.0); MEAN CELL VOLUME 104 fl (80.0-100.0); MEAN CORPUSCULAR HGB CONC 31 g/dl (33.0-37.0); MEAN PLATELET VOLUME 10.1 fl (7.4-10.4); MONO # 0.3 K/mm3 (0.1-0.6); MONO % 12.8 % (1.7-9.3); PLATELET COUNT 133 K/mm3 (130-400); RED BLOOD COUNT 2.53 M/mm3 (4.10-5.30); REDCELL DISTRIBUTION WIDTH-CV 14.6 % (11.5-14.5)
[2022-05-29 06:52] LABS: HEMATOCRIT 26.2 % (37.0-47.0); MEAN CORPUSCULAR HEMOGLOBIN 32 pg (27-31)
[2022-05-29 07:08] LABS: CALCIUM 8.8 mg/dL (8.4-10.2); POTASSIUM 4.9 mmol/L (3.5-4.5)
[2022-05-29 07:22] LABS: MAGNESIUM 2.3 mg/dL (1.6-2.6)
[2022-05-29 07:50] VITALS: BP 135/58; PULSE 62; TEMP 98.3
[2022-05-29] MEDS ORDERED: IMODIUM 2MG CAPS2 MG PO (08:59)
[2022-05-29] MEDS ORDERED: PROBIOTIC ACID1 EAC3 PO (09:00)
[2022-05-29] MEDS ORDERED: ZOFRAN ODT4 MG PO (09:00)
[2022-05-29] MEDS ORDERED: MAG-OX 400400 MG/TAB PO (09:01)
[2022-05-29] MEDS ORDERED: LEVAQUIN 5500 MG/TA1 PO (09:03)
--- NOTE | 2022-05-29 11:19 | NUR ---
PATIENT DISCHARGE PACKET AND EDUCATION PROVIDED. ALL QUESTIONS ANSWERED. IV REMOVED PER PROTOCOL. PATIENT SAFELY TRANSPORTED TO ER ENTRANCE BY STAFF AND FAMILY MEMBER FOR DISCHARGE.
== END 2022-05-29 11:20 | disposition home or self-care (01) | DRG 683 ==
LOC: COL.ER 11:59 → MEDICAL 14:22
PROVIDERS: Nurse Practitioner; ADMIT Internal Medicine
DX: N17.9 Acute kidney failure, unspecified (principal); N39.0 Urinary tract infection, site not specified; I13.0 Hypertensive heart and chronic kidney disease with heart failure and stage 1 through stage 4 chronic kidney disease, or unspecified chronic kidney disease; E87.2 Acidosis; D61.818 Other pancytopenia; Z66 Do not resuscitate; I50.32 Chronic diastolic (congestive) heart failure; A08.39 Other viral enteritis; I48.91 Unspecified atrial fibrillation; R62.7 Adult failure to thrive; E03.9 Hypothyroidism, unspecified; D64.9 Anemia, unspecified; F32.A Depression, unspecified; E78.5 Hyperlipidemia, unspecified; Z20.822 Contact with and (suspected) exposure to COVID-19; N18.30 Chronic kidney disease, stage 3 unspecified; I27.20 Pulmonary hypertension, unspecified; E87.5 Hyperkalemia; Z95.0 Presence of cardiac pacemaker; Z72.89 Other problems related to lifestyle; Z79.890 Hormone replacement therapy; Z79.82 Long term (current) use of aspirin; Z68.24 Body mass index [BMI] 24.0-24.9, adult
CPT/HCPCS: J0696; J1644; J3475; J7030; J7120

== ENCOUNTER → 2022-06-01 | Outpatient (CLI) | payer MEDICARE, OTHER ==
[~2022-06-01] MED LIST changes: +IMODIUM 2MG CAPS2 MG PO; +LEVAQUIN 5500 MG/TA1 PO; +MAG-OX 400400 MG/TAB PO; +PACERONE200 MG PO; +PROBIOTIC ACID1 EAC3 PO; +VITAMIN D3400 I1 PO; +XALATAN EYE DROPS OU; +ZILRETTA32 MG; +ZOFRAN ODT4 MG PO
[2022-06-01 11:19] LABS: CALCIUM 9.2 mg/dL (8.4-10.2); CREATININE, serum 1.85 mg/dL (0.57-1.11); MAGNESIUM 1.8 mg/dL (1.6-2.6)
[2022-06-01 11:50] LABS: POTASSIUM 5.8 mmol/L (3.5-4.5)
== END ==
LOC: COL.LAB 10:30
PROVIDERS: Internal Medicine
DX: N17.9 Acute kidney failure, unspecified (principal)

== ENCOUNTER → 2022-06-05 | Outpatient (CLI) | payer MEDICARE, OTHER ==
[2022-06-05 11:57] LABS: CALCIUM 8.5 mg/dL (8.4-10.2); CREATININE, serum 2.1 mg/dL (0.57-1.11); POTASSIUM 3.8 mmol/L (3.5-4.5)
== END ==
LOC: COL.LAB 11:15
PROVIDERS: Internal Medicine
DX: N17.9 Acute kidney failure, unspecified (principal); E87.5 Hyperkalemia

== ENCOUNTER → 2022-06-14 | Outpatient (CLI) | payer MEDICARE, OTHER ==
[2022-06-14 12:45] LABS: CALCIUM 8.5 mg/dL (8.4-10.2); CREATININE, serum 1.89 mg/dL (0.57-1.11); MAGNESIUM 1.6 mg/dL (1.6-2.6)
== END ==
LOC: COL.LAB 11:45
PROVIDERS: Internal Medicine
DX: N18.30 Chronic kidney disease, stage 3 unspecified (principal)

== ENCOUNTER 2023-06-13 15:13 | Inpatient (IN) | payer MEDICARE, OTHER ==
[~2023-06-13] VITALS: Ht 167.6 cm; Wt 59.1 kg
[~2023-06-13 15:13] MED LIST changes: +EUTHYROX150 MCG PO; +EUTHYROX175 MCG PO
[2023-06-15] MEDS ORDERED: PLAVIX 75MG TAB75 MG PO (08:39)
[2023-06-15] MEDS ORDERED: SODIUM BICARBO650 MG PO (08:40)
--- NOTE | 2023-06-18 12:59 | NUR ---
Patient transfered from surgical unit to [facility] room 334 at 1000 via wheelchair. Patient alert and oriented x4. Lungs, CTA, bowel sound active and pulses present. PICC line at right upper arm in place, no redness or swelling noted at site. Patient has gauze dressing at right groin from labor economist and noted large ecchymosis at right thight . Patient denies pain at this time and oriented to room and the use of call mtz. Chair alarm activated for safety.
--- NOTE | 2023-06-18 15:52 | NUR ---
Protein Scientist met with Patient at bedside to review progress towards treatment goals and discuss discharge planning. Patient states that she hasn't seen much progress but understands that she has just started therapy. Patient states that she understands that she need to go through rehab to increase her independence and support a safe discharge. Patient states that her goal is to return home. Protein Scientist briefed that discharge needs will be identified through the course of treatment and will be discussed with Patient for coordination. Patient presents with no further concerns at this time.
[2023-06-18 16:37] VITALS: BP 146/36; PULSE 61; TEMP 97.8
--- NOTE | 2023-06-18 16:42 | NUR ---
Has lack of transportation kept you from medical appts, meetings, work, or from getting things needed for daily living? NO How often do you feel lonely or isolated from those around you? SOMETIMES Over the past 5 days, how much of the time has pain made it hard for you to sleep? RARELY/NOT AT ALL Over the past 5 days, how often have you limited your participation in therapy due to pain? RARELY/NOT AT ALL Over the past 5 days, how often have you limited your day-to-day activities because of pain? RARELY/NOT AT ALL Have you had 2 or more falls in the past year or any fall with an injury? NO Did you have major surgery during the 100 days prior to admission? NO
[2023-06-18 17:00] VITALS: BP_SYST 146
--- NOTE | 2023-06-18 20:00 | NUR ---
PT A&O X4 SITTING UP IN RECLINER. GAUZE DRESSING IN PLACE TO RIGHT FEMORAL CDI & ECCHYMOSIS TO RUE. PT DENYING PAIN. CHAIR ALARM ON & CALL LIGHT IN REACH. PT DENYING FURTHER NEEDS AT THIS TIME.
[2023-06-18 21:00] VITALS: BP_SYST 146
[2023-06-18 23:36] VITALS: BP_SYST 146
[2023-06-19 05:26] VITALS: BP 131/27; PULSE 60; TEMP 98.1
--- NOTE | 2023-06-19 05:43 | NUR ---
PT HAD UNEVENTFUL NIGHT. AMBULATED TO THE RESTROOM WITH 1X ASSIST. CURRENTLY BACK IN BED WITH FALL PRECAUTIONS IN PLACE & CALL LIGHT IN REACH. DENYING FURTHER NEEDS AT THIS TIME.
[2023-06-19 06:50] VITALS: BP_SYST 131
--- NOTE | 2023-06-19 06:50 | NUR ---
Shift report received from senior safety management consultant RN. Pt sitting up in the recliner. Denies pain or discomfort. No events reported overnight. Call light in reach
--- NOTE | 2023-06-19 07:21 | NUR ---
Pt sitting up to eat breakfast independently. Pain/discomfort denied. Call light in reach. Chair alarm is on.
--- NOTE | 2023-06-19 08:43 | NUR ---
Pt is off the unit w/ OT
--- NOTE | 2023-06-19 10:09 | NUR ---
Pt sitting up in the recliner after returning from OT. She is watching videos on her Ipad. Pain/discomfort denied. Pt denies any needs at this time. Call light in reach. Chair alarm is on.
--- NOTE | 2023-06-19 10:29 | NUR ---
Initial visit attempt; Patient Indisposed and Nurse was present. Senior Major Gifts Officer left card informing patient of the availability of Spiritual Care at [facility].
--- NOTE | 2023-06-19 10:50 | NUR ---
Pt is off the unit for Group Therapy.
--- NOTE | 2023-06-19 12:37 | NUR ---
Pt sitting up in the recliner to eat lunch independently. She denies pain/discomfort. Denies other needs. Call light in reach. Chair alarm is on.
--- NOTE | 2023-06-19 17:40 | NUR ---
Pt sitting up in the recliner talking on the phone. She is waiting for her family to arrive & they plan to eat dinner together off unit. Pt denies pain/discomfort. Denies other needs. Call light in reach. Chair alarm is on.
[2023-06-19 17:52] VITALS: BP 146/58; PULSE 59; TEMP 97.5
--- NOTE | 2023-06-19 18:20 | NUR ---
Pt is off the unit for dinner w/ her family.
--- NOTE | 2023-06-19 19:28 | NUR ---
REPORT RECIEVED FROM ROSARIO JIMENEZ. PT IN [place] WITH FAMILY FOR DINNER. ALL NEEDS MET AT THIS TIME.
[2023-06-19 19:29] VITALS: BP_SYST 146
--- NOTE | 2023-06-19 21:59 | NUR ---
SHIFT ASSESSMENT COMPLETE, SEE DOCUMENATION. PT EXHAUSTED FROM DINNER IN THE COURTYARD WITH FAMILY. ASSISTED HER INTO PAJAMAS, BATHROOM, AND BED. TOLERATED HS MEDS WELL. NO C/O PAIN OR DISCOMFORT. BED ALARM ON. CALL LIGHT IN PLACE. ALL NEEDS MET AT THIS TIME.
[2023-06-20 05:45] VITALS: BP 121/33; PULSE 59; TEMP 98.1
[2023-06-20 06:45] VITALS: BP_SYST 121
--- NOTE | 2023-06-20 06:45 | NUR ---
Shift report received from fiber picker RN. Pt had an episode of loose stool w/o vomiting overnight. No other events reported. Pt sleeping supine in bed w/ even & unlabored resps. Call light in reach. Bed alarm is on.
--- NOTE | 2023-06-20 07:36 | NUR ---
Pt sitting up in the recliner eating breakfast independently. Pain/discomfort denied. Call light in reach. Chair alarm is on.
--- NOTE | 2023-06-20 09:18 | NUR ---
Pt in the bathroom having another loose stool. Immodium given per "now" order. Pt denies abd pain or nausea. Will continue to monitor.
--- NOTE | 2023-06-20 14:22 | NUR ---
Shower completed w/ OT. Pt states that femoral site s/p heart cath was still "oozing" yesterday. Dressing in place & remains intact. Skin tear to LUE redressed w/ xeroform & tegaderm. Pt up to ambulate in hallway w/ OT.
--- NOTE | 2023-06-20 16:09 | NUR ---
Raw Shellfish Preparer met with Patient and DPOAHC Caroline to review team conference notes from this AM. SW reviewed progress towards treatment goals, barriers and interventions, and discharge planning with Patient and Caroline. Patient is anticipated to dicharge 06-22-23 with OPPT. when discussing OP PT Patient reports that she would like to recieve services from [facility] with Provider,
--- NOTE | 2023-06-20 16:50 | NUR ---
Supervision provided as pt stood from recliner to ambulate to the bathroom w/ FWW. Pt had a normal BM. 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 Other needs denied. Pt sitting in recliner after toileting. Call light in reach. Chair alarm is on.
[2023-06-20 17:24] VITALS: BP 131/39; PULSE 60; TEMP 98.1
--- NOTE | 2023-06-20 19:16 | NUR ---
RECEIVED CHANGE OF SHIFT REPORT FROM DAY SHIFT RN.
--- NOTE | 2023-06-20 23:46 | NUR ---
PATIENT SLEEPING, DOES NOT WAKE DURING NURSING ROUNDS, OBSERVED BREATHING NONLABORED AND EVEN. EXIT ALARM ON, CALL LIGHT IN REACH.
[2023-06-21] VITALS (9 sets, daily range): BP systolic 97–128; BP diastolic 37–61; PULSE 58–61; TEMP 97.4–98.3
--- NOTE | 2023-06-21 03:19 | NUR ---
PATIENT INDICATED HAS SOME R SHOULDER PAIN, REFUSED OFFER OF TYLENOL FOR DISCOMFORT AT THIS TIME.
[2023-06-21 06:34] LABS: BASO % 0.4 % (0.0-2.0); EOS # 0.1 K/mm3 (0.0-0.7); GRAN # 1.6 K/mm3 (1.4-6.5); GRAN % 60.7 % (42.2-75.2); LYMPH # 0.6 K/mm3 (1.2-3.4); LYMPH % 24.2 % (20.0-51.0); MEAN CELL VOLUME 100 fl (80.0-100.0); MEAN CORPUSCULAR HGB CONC 30 g/dl (33.0-37.0); MEAN PLATELET VOLUME 9.9 fl (7.4-10.4); MONO # 0.3 K/mm3 (0.1-0.6); MONO % 11.3 % (1.7-9.3); PLATELET COUNT 132 K/mm3 (130-400); RED BLOOD COUNT 2.41 M/mm3 (4.10-5.30); REDCELL DISTRIBUTION WIDTH-CV 17.2 % (11.5-14.5)
[2023-06-21 06:38] LABS: HEMATOCRIT 24.1 % (37.0-47.0); HEMOGLOBIN 7.3 g/dl (12.5-16.0); MEAN CORPUSCULAR HEMOGLOBIN 30 pg (27-31)
[2023-06-21 06:57] LABS: CALCIUM 7.8 mg/dL (8.4-10.2); CREATININE, serum 1.46 mg/dL (0.57-1.11); POTASSIUM 4.1 mmol/L (3.5-4.5)
--- NOTE | 2023-06-21 07:06 | NUR ---
CHANGE OF SHIFT REPORT GIVEN TO DAY SHIFT RNEARL.
--- NOTE | 2023-06-21 07:07 | NUR ---
Shift report received from shift foreman RN. Pt sleeping supine in bed. Resps are even & unlabored. Call light in reach. Bed alarm on. No events reported overnight.
--- NOTE | 2023-06-21 08:24 | NUR ---
Pt is off the unit w/ PT.
--- NOTE | 2023-06-21 12:17 | NUR ---
Pt sitting up in recliner to eat lunch independently. Pt is now on Mod I status in her room. Pt denies pain/discomfort. Denies other needs. Call light in reach.
--- NOTE | 2023-06-21 12:44 | NUR ---
Trade Promotion Analyst contacted [facility] to schedule OP PT for Patient. Appointment scheduled for 06-26-23 at 1430.
--- NOTE | 2023-06-21 12:45 | NUR ---
Admission QIM scores were reviewed by the team. Code of 4 chosen for oral hygiene was determined by team discussion to be the most usual performance before interventions for this patient during the assessment period. Code of 4 chosen for toileting hygiene was determined by team discussion to be the most usual performance for this patient during the discharge assessment period. Code of 4 chosen for toilet transfers was determined by team discussion to be the most usual performance for this patient during the discharge assessment period. Code of 4 chosen for shower/bathe self was determined by team discussion to be the most usual performance before interventions for this patient during the assessment period. Code of 5 chosen for upper body dressing was determined by team discussion to be the most usual performance before interventions for this patient during the assessment period. Code of 4 chosen for lower body dressing was determined by team discussion to be the most usual performance before interventions for this patient during the assessment period. Code of 5 chosen for putting on/taking off footwear was determined by team discussion to be the most usual performance before interventions for this patient during the assessment period. Code of 4 chosen for sit to stand was determined by team discussion to be the most usual performance for this patient during the discharge assessment period.--PD Jenelle
--- NOTE | 2023-06-21 12:51 | NUR ---
The Interdisciplinary team discussed making the patient Independent in her room. Her current Duke Fall Score is high at 50 d/t having a PICC line which is not currently being used & nursing feels she is safe. Tinetti score was moderate at 21 & has been able to walk w/ a device in her room. She is currently the walker for mobility & self care, which is what she used prior to hospitalization. The team feels she is capable of being Modified Independent in her room at this time as she is aware of her deficits/limitations & cognitively able to problem solve her situations.--Nadine Lawrence, PD
--- NOTE | 2023-06-21 13:25 | NUR ---
Has lack of transportation kept you from medical appts, meetings, work, or from getting things needed for daily living? NO How often do you feel lonely or isolated from those around you? RARELY Over the past 5 days, how much of the time has pain made it hard for you to sleep? OCCASIONALLY Over the past 5 days, how often have you limited your participation in therapy due to pain? RARELY/NOT AT ALL Over the past 5 days, how often have you limited your day-to-day activities because of pain? RARELY/NOT AT ALL
--- NOTE | 2023-06-21 14:56 | NUR ---
Frame Expander contacted Patient's DPOA, Caroline, to inform her of OP PT appointment at [facility] on 06-26-23 at 1430. Caroline veriffies that that Patient will be able to attend that appointment and has no concerns at this time.
--- NOTE | 2023-06-21 15:02 | NUR ---
Pt sitting up in the recliner watching videos on her Ipad. PRBCs infusing to RUE PICC w/o sx of infiltration & w/o sx of infusion reaction. Pt denies any needs at this time. Call light in reach. She remains Mod I in room.
--- NOTE | 2023-06-21 18:30 | NUR ---
Pt sitting up in the recliner eating dinner independently. She denies pain or discomfort. Denies other needs. Remains Mod I in room. Call light in her reach.
--- NOTE | 2023-06-21 21:00 | NUR ---
PT SITTING IN RECLINER. A&O. MOD I IN ROOM. SEE SHIFT ASSESSMENT. DENIES PAIN. NOT READY FOR BED. NO NEEDS AT THIS TIME.
[2023-06-22 05:33] VITALS: BP 129/47; PULSE 60; TEMP 97.7
[2023-06-22 05:42] LABS: HEMATOCRIT 27.9 % (37.0-47.0); HEMOGLOBIN 8.7 g/dl (12.5-16.0)
[2023-06-22] MEDS ORDERED: PLAVIX 75MG TAB75 MG PO (08:51)
[2023-06-22] MEDS ORDERED: ASPIRIN E.C. 8181 MG PO (08:51)
[2023-06-22] MEDS ORDERED: SODIUM BICARBO650 MG PO (08:52)
--- NOTE | 2023-06-22 09:41 | NUR ---
PATIENT ALERT AND ORIENTED X4. VSS. PATIENT HERE FOR RIGHT SIDED WEAKNESS R/T CVA. PATIENT DENIES ANY PAIN AT THIS TIME. PICC TO RIGHT UPPER ARM, DOUBLE LUMEN, FLUSHES WELL WITH GOOD BLOOD RETURN. PATIENT SITTING IN CHAIR, EATING BREAKFAST, NO FURTHER NEEDS. CALL LIGHT IN REACH, CHAIR ALARM ON.
--- NOTE | 2023-06-22 10:07 | NUR ---
Market Development Analyst and SW student met with Patient at bedside to conduct Medicare IM brief and review discharge plan. Patient acknowledged brief and signed form. Patient declined copy, original placed in chart. Patient will discharge home today with OP PT scheduled at [facility] on 06-26-23 at 1430.
--- NOTE | 2023-06-22 10:38 | NUR ---
PICC LINE REMOVED BY [facility]. PATIENT EDUCATED BY THAT TEAM ON RESTRICTIONS POST REMOVAL. DISCHARGE INSTRUCTIONS GIVEN TO PATIENT AND DAUGHTER. PATIENT EDUCATION GIVEN. FOLLOW UP APPOINTMENTS DISCUSSED. MEDICATIONS REVIEWED. PATIENT AND DAUGHTER DENY AND QUESTIONS OR CONCERNS.
--- NOTE | 2023-06-22 11:21 | NUR ---
PATIENT ESCORTED OUT WITH BELONGINGS AND DAUGHTER.
--- NOTE | 2023-06-22 12:20 | NUR ---
Asphalt Smoother faxed discharge orders to [facility].
== END 2023-06-22 11:21 | disposition home or self-care (01) | DRG 56 ==
PROVIDERS: ADMIT Physical Medicine & Rehabilitation Sports Medicine
DX: I69.351 Hemiplegia and hemiparesis following cerebral infarction affecting right dominant side (principal); I21.A1 Myocardial infarction type 2; E87.22 Chronic metabolic acidosis; D64.89 Other specified anemias; R26.89 Other abnormalities of gait and mobility; I48.91 Unspecified atrial fibrillation; N18.9 Chronic kidney disease, unspecified; E03.9 Hypothyroidism, unspecified; F32.A Depression, unspecified; I69.392 Facial weakness following cerebral infarction; I69.328 Other speech and language deficits following cerebral infarction; I69.322 Dysarthria following cerebral infarction; Z87.891 Personal history of nicotine dependence; Z79.82 Long term (current) use of aspirin; Z79.899 Other long term (current) drug therapy; Z79.02 Long term (current) use of antithrombotics/antiplatelets; Z95.0 Presence of cardiac pacemaker; Z85.820 Personal history of malignant melanoma of skin; Z98.84 Bariatric surgery status; Z96.643 Presence of artificial hip joint, bilateral; Z96.652 Presence of left artificial knee joint; Z74.09 Other reduced mobility; R19.7 Diarrhea, unspecified
CPT/HCPCS: A9284; J7030; P9016

== ENCOUNTER 2023-07-05 12:45 | Outpatient (RCR) | payer MEDICARE, OTHER ==
[~2023-07-05 12:45] MED LIST changes: +PLAVIX 75MG TAB75 MG PO
== END 2023-07-07 | disposition home or self-care (01) ==
LOC: WSPT
DX: I69.359 Hemiplegia and hemiparesis following cerebral infarction affecting unspecified side (principal); R26.89 Other abnormalities of gait and mobility; R53.1 Weakness

== ENCOUNTER → 2023-07-12 | Outpatient (CLI) | payer MEDICARE, OTHER | LOC: COL.VAS 08:54 | DX: I82.401 Acute embolism and thrombosis of unspecified deep veins of right lower extremity (principal) ==

== ENCOUNTER → 2023-09-06 | Outpatient (RCR) | payer MEDICARE, OTHER | END | disposition home or self-care (01) | LOC: WSPT | DX: I69.352 Hemiplegia and hemiparesis following cerebral infarction affecting left dominant side (principal) ==

== ENCOUNTER 2023-10-04 09:45 | Outpatient (RCR) | payer MEDICARE, OTHER | END 2023-10-07 | disposition home or self-care (01) | LOC: WSPT | DX: I69.351 Hemiplegia and hemiparesis following cerebral infarction affecting right dominant side (principal) ==

== ENCOUNTER 2023-12-21 11:16 | Outpatient (CLI) | payer MEDICARE, OTHER ==
[~2023-12-21] VITALS: Ht 167.6 cm; Wt 56.0 kg
[2023-12-21 11:12] VITALS: BP 144/62; PULSE 60; TEMP 98.1
[2023-12-21] MEDS ORDERED: LEVOXYL0.2 MG PO (11:22)
[2023-12-21] MEDS ORDERED: RECLAST5 MG/100 M IV (11:23)
--- NOTE | 2023-12-21 12:20 | NUR ---
Pt tolerated initial reclast without issue. She remained in dept for monitoring following administration. She is free of complaints. IV DC'd, site wrapped with coban. She is assisted out by wheelchair to meet daughter.
== END 2023-12-21 12:21 | disposition home or self-care (01) ==
LOC: EUO 11:16
DX: M81.0 Age-related osteoporosis without current pathological fracture (principal)
CPT/HCPCS: J3489

== ENCOUNTER 2024-07-30 05:25 | Inpatient (IN) | payer MEDICARE, OTHER ==
[2024-07-30] VITALS (12 sets, daily range): BP systolic 119–137; BP diastolic 41–83; PULSE 58–66; TEMP 97.4–98.1
[~2024-07-30] VITALS: Ht 157.5 cm; Wt 49.1 kg
[~2024-07-30 05:25] MED LIST changes: +D3-5050000 IU PO; +RECLAST5 MG/100 M IV; -VITAMIN D3400 I1 PO
--- NOTE | 2024-07-30 09:15 | NUR ---
Patient to room 346 from admission by wheelchair. A&Ox4. VSS. Daughter with the patient. Nurse oriented the patient to location, room and call light. Call light within reach.
[2024-07-30] MEDS ORDERED: Docusate Sodium 100 MG CAP PO PRN (09:30)
[2024-07-30] MEDS ORDERED: Temazepam 15 MG CAP PO PRN (09:30)
[2024-07-30] MEDS ORDERED: Acetaminophen 325 MG TAB PO PRN (09:45)
[2024-07-30] MEDS ORDERED: PRAVACHOL 20MG20 MG PO (09:56)
[2024-07-30] MEDS ORDERED: QUALITY CHOIC0.52 GM PO (10:00)
[2024-07-30] MEDS ORDERED: TYLENOL 500MG500 MG PO (10:01)
[2024-07-30 10:17] LABS: BASO % 0.2 % (0.0-2.0); EOS % 0.5 % (0.0-4.0); GRAN # 3.2 K/mm3 (1.4-6.5); GRAN % 74.6 % (42.2-75.2); LYMPH # 0.7 K/mm3 (1.2-3.4); LYMPH % 17.4 % (20.0-51.0); MEAN CELL VOLUME 103 fl (80.0-100.0); MEAN CORPUSCULAR HGB CONC 30 g/dl (33.0-37.0); MEAN PLATELET VOLUME 9.6 fl (7.4-10.4); MONO # 0.3 K/mm3 (0.1-0.6); MONO % 6.8 % (1.7-9.3); PLATELET COUNT 159 K/mm3 (130-400); RED BLOOD COUNT 2.48 M/mm3 (4.10-5.30); REDCELL DISTRIBUTION WIDTH-CV 16.3 % (11.5-14.5)
[2024-07-30 10:19] LABS: HEMATOCRIT 25.5 % (37.0-47.0); HEMOGLOBIN 7.7 g/dl (12.5-16.0); MEAN CORPUSCULAR HEMOGLOBIN 31 pg (27-31)
[2024-07-30 10:31] LABS: CREATININE, serum 1.4 mg/dL (0.57-1.11); MAGNESIUM 1.8 mg/dL (1.6-2.6); POTASSIUM 3.7 mEq/L (3.5-4.5)
[2024-07-30] MEDS ORDERED: Acetaminophen 500 MG TAB PO PRN (11:30)
[2024-07-30] MEDS ORDERED: CORDARONE200 MG/TAB PO (11:31)
[2024-07-30] MEDS ORDERED: guaiFENesin ER 1,200 MG **** subs to guaiFENesin 400 MG PO SCH (11:34)
[2024-07-30] MEDS ORDERED: *Potassium Replacement Protocol MC SCH (11:45)
[2024-07-30] MEDS ORDERED: Latanoprost 0.005% Ophth Soln 2.5 ML BOTTLE OP SCH (21:00)
[2024-07-30] MEDS ORDERED: Sodium Bicarbonate 650 MG TAB PO SCH (21:00)
--- NOTE | 2024-07-30 22:10 | NUR ---
PATIENT ALERT AND ORIENTED X4. VSS. PATIENT HERE FOR TIKOSYN INITIATION. PATIENT DENIES ANY PAIN. PM MEDS ADMINISTERED. PATIENT RESTING IN BED. CALL LIGHT IN REACH. BED ALARM ON.
[2024-07-31] VITALS (13 sets, daily range): BP systolic 126–153; BP diastolic 56–68; PULSE 58–64; TEMP 97.6–98.2
[2024-07-31 06:37] LABS: BASO % 0.3 % (0.0-2.0); EOS % 0.6 % (0.0-4.0); GRAN # 2.1 K/mm3 (1.4-6.5); GRAN % 58.9 % (42.2-75.2); LYMPH # 1.2 K/mm3 (1.2-3.4); LYMPH % 33.3 % (20.0-51.0); MEAN CELL VOLUME 101 fl (80.0-100.0); MEAN CORPUSCULAR HGB CONC 30 g/dl (33.0-37.0); MEAN PLATELET VOLUME 9.8 fl (7.4-10.4); MONO # 0.2 K/mm3 (0.1-0.6); MONO % 6.6 % (1.7-9.3); PLATELET COUNT 162 K/mm3 (130-400); RED BLOOD COUNT 2.46 M/mm3 (4.10-5.30); REDCELL DISTRIBUTION WIDTH-CV 16.1 % (11.5-14.5)
[2024-07-31 06:39] LABS: HEMATOCRIT 24.9 % (37.0-47.0); HEMOGLOBIN 7.5 g/dl (12.5-16.0); MEAN CORPUSCULAR HEMOGLOBIN 30 pg (27-31)
[2024-07-31 06:44] LABS: CALCIUM 8.1 mg/dL (8.4-10.2); CREATININE, serum 1.41 mg/dL (0.57-1.11); MAGNESIUM 2.1 mg/dL (1.6-2.6); POTASSIUM 4.2 mEq/L (3.5-4.5)
[2024-07-31] MEDS ORDERED: Cetirizine 10 MG TAB PO SCH (09:00)
[2024-07-31] MEDS ORDERED: Cholecalciferol (Vit D3) 125 MCG (5,000 Units) Capsule PO SCH (09:00)
[2024-07-31] MEDS ORDERED: Ferrous Sulfate 325 MG TAB PO SCH (09:00)
[2024-07-31] MEDS ORDERED: Clopidogrel 75 MG TAB PO SCH (09:00)
[2024-07-31] MEDS ORDERED: Pravastatin 20 MG TAB PO SCH (09:00)
[2024-07-31] MEDS ORDERED: Sertraline 100 MG TAB PO SCH (09:00)
--- NOTE | 2024-07-31 09:23 | NUR ---
Patient sittiing up in the recliner, daughter at the bedside. A&Ox4. VSS. IV CDI. Denies pain and discomfort. Chair alarm on. Call light within reach
--- NOTE | 2024-07-31 09:38 | NUR ---
Storage Wharfage Clerk met with patient to discuss discharge planning. Patient's daughter, Caroline (ph#[phone]) is at bedside. Patient lives alone in [place] and sees Dr. Snow for primary care. Patient gets medications from [facility] and advised one of her four children hot die picker her medications for her as she does not drive. Patient uses a walker for ambulation. Patient is normally independent with ADLS but reported she feels a little unsteady when showering. Caroline advised they have an appointment with Dr. Snow next week and they plan to bring up getting private duty caregivers for the home. Patient stated her daughter, Caroline is her DPOA-HC. Patient plans to return home at time of discharge. KESHAV spoke with TONY Mosley about ordering PT/OT. Discharge Plan: Home, pending PT/OT mackenzie
[2024-07-31] MEDS ORDERED: Psyllium Powder 5.8 G (3.4 G Psyllium) PACKET PO SCH (11:00)
--- NOTE | 2024-07-31 11:00 | NUR ---
sitting up in recliner and cardiopulmonary in completing EKG, bedside shift report received from TONY Mosley
--- NOTE | 2024-07-31 12:18 | NUR ---
sitting up in chair and eating lunch
--- NOTE | 2024-07-31 12:57 | NUR ---
D: Blow Molder stopped by room on rounds. A: Pt was resting and content with daughter in the room. Pt has no needs right now. P: Blow Molder informed pt that if she needed anything from the instrument inspector area to let her nurse know. Blow Molder will follow up as needed.
--- NOTE | 2024-07-31 13:10 | NUR ---
full assessment completed, see shift assessment for further info, assisted back to bed per patient's request, denies needs
--- NOTE | 2024-07-31 18:57 | NUR ---
bedside shift report given to TONY Jones
--- NOTE | 2024-07-31 19:18 | NUR ---
1849- tele notified foam charger of x5 beat run of Vtach, vitals measured and stable, pt denies chest pain/discomfort and shortness of breath. on tele pt paced in 60s at this time. 1917- JN Looney notified, stated "thanks for the updated".
--- NOTE | 2024-07-31 22:22 | NUR ---
patient lying in bed, alert and oriented x4. denies chest pain/discomfort and shortness of breath. hard of hearing. IV in LF is patent, site CDI. RT notified after given tikosyn. small blanchable redness to sacrum, mepilex in place, CDI. fall precaution sin place, call light within reach. pt has no further needs, questions or concerns at this time.
[2024-08-01 00:17] VITALS: BP_SYST 153
[2024-08-01 03:59] VITALS: BP 142/63; PULSE 63; TEMP 98.1
[2024-08-01 04:10] VITALS: BP_SYST 142
[2024-08-01 07:15] LABS: BASO % 0.3 % (0.0-2.0); EOS % 0.8 % (0.0-4.0); GRAN # 2.4 K/mm3 (1.4-6.5); LYMPH % 25.7 % (20.0-51.0); MEAN CELL VOLUME 102 fl (80.0-100.0); MEAN CORPUSCULAR HGB CONC 30 g/dl (33.0-37.0); MEAN PLATELET VOLUME 9.8 fl (7.4-10.4); MONO # 0.3 K/mm3 (0.1-0.6); MONO % 8.9 % (1.7-9.3); PLATELET COUNT 162 K/mm3 (130-400); RED BLOOD COUNT 2.45 M/mm3 (4.10-5.30)
[2024-08-01 07:25] LABS: CREATININE, serum 1.42 mg/dL (0.57-1.11); MAGNESIUM 2.1 mg/dL (1.6-2.6); POTASSIUM 4.8 mEq/L (3.5-4.5)
[2024-08-01 07:28] LABS: HEMATOCRIT 24.9 % (37.0-47.0); HEMOGLOBIN 7.5 g/dl (12.5-16.0); MEAN CORPUSCULAR HEMOGLOBIN 31 pg (27-31)
[2024-08-01 08:40] VITALS: BP 108/68; BP 120/66; PULSE 64; PULSE 74; TEMP 97.8; TEMP 98.3
[2024-08-01] MEDS ORDERED: TIKOSYN0.125 MG PO (09:26)
--- NOTE | 2024-08-01 09:59 | NUR ---
Pt. sitting up in the chair. Pt. is A&OX3, assessment complete. INT to lt. forearm patent. Pt. denies pain. Pacemaker interigated this am. Per Dr. Townsend, we will get the EKG now and then we can discharge the pt. Pt. denies further needs, call light within reach.
[2024-08-01 10:02] VITALS: BP_SYST 120
--- NOTE | 2024-08-01 12:00 | NUR ---
Pt. ready for discharge. INT discontinued from lt. forearm. Reviewed discharge packet with the patient. Pt. voices understanding. Pt. dressed and escorted out by wheelchair.
== END 2024-08-01 12:00 | disposition home or self-care (01) | DRG 310 ==
LOC: MEDICAL 05:25 → SURG 09:03
PROVIDERS: ADMIT Internal Medicine Cardiovascular Disease
DX: I48.0 Paroxysmal atrial fibrillation (principal); Z51.81 Encounter for therapeutic drug level monitoring; I48.92 Unspecified atrial flutter; Z79.899 Other long term (current) drug therapy
CPT/HCPCS: J3475